=== PATIENT | female | born 1945 | race Hispanic/Latino ===

== ENCOUNTER 2018-09-17 07:08 | Day surgery (SDC) | payer OTHER ==
--- NOTE | 2018-09-14 10:18 | RAD REPORT ---
EXAM DESCRIPTION: RAD - Chest Pa And Lat (2 Views) - 09/14/2018 9:57 am CLINICAL HISTORY: preop Chest pain. COMPARISON: No comparisons FINDINGS: The lungs are mildly emphysematous but clear. The heart is upper limit normal in size. No displaced fractures. IMPRESSION: Mild COPD.
[2018-09-14 10:35] LABS: Absolute Lymphocytes (CBC) 1.5 K/uL (0.7-4.9); Basophils % 0.7 % (0-1.3); Eosinophils % 0.5 % (0-4.4); Hematocrit 40.1 % (36.0-45.0); Lymphocytes % 18.3 % (15.3-44.8); MPV 8.9 fL (7.6-11.3); Monocytes % 5.2 % (3.3-12.3); RBC Red Blood Cell Count 4.19 M/uL (3.86-4.86)
[2018-09-14 10:47] LABS: Potassium 3.8 mmol/L (3.5-5.1)
--- NOTE | 2018-09-14 15:37 | EKG ---
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
[2018-09-17] MEDS ORDERED: Ringers Lactate 1,000 ML IV ONE (08:10)
[2018-09-17] MEDS ORDERED: CEFAZOLIN/SWI 1gm 1 GM/10 ML SYR ONE (08:10)
[2018-09-17] MEDS ORDERED: PROPOFOL 200 MG/20 ML VIAL IV ONE (08:23)
[2018-09-17] MEDS ORDERED: FENTANYL CITR 100 MCG/2 ML ONE (08:24)
[2018-09-17] MEDS ORDERED: LIDOCAINE 1% MPF 5 ML VIAL ONE (08:24)
[2018-09-17] MEDS ORDERED: MIDAZOLAM HCL 2 MG/2 ML INJ ONE ×2 (08:46→08:54)
[2018-09-17] MEDS ORDERED: KETOROLAC 30 MG/ML INJ ONE (09:16)
[2018-09-17] MEDS ORDERED: ONDANSETRON 4 MG/2 ML VIAL ONE (09:23)
--- NOTE | 2018-09-17 09:33 | P.BOP ---
Preoperative diagnosis: infected post neck subcutaneous mass Postoperative diagnosis: same Primary procedure: Excisional biopsy infected post neck subcutaneous mass 3x3cm Viscose Department Worker: SHANTEL BHATIA (COVER MARKER) Estimated blood loss: <10cc Specimen: mass Findings: deep subq mass Anesthesia: General Transferred to: Recovery Room Condition: Good
--- NOTE | 2018-09-17 20:18 | OP ---
Date of Procedure: 09/17/2018 Surgeon: Jaydon Eckert MD [place] Attacher: GIBSON Vela Preoperative Diagnosis: Infected posterior neck subcutaneous mass. Postoperative Diagnosis: Infected posterior neck subcutaneous mass. Procedure: Excisional biopsy of infected posterior neck subcutaneous mass, 3 x 3 cm. Specimen: Mass. Findings: Deep subcutaneous mass. Anesthesia: General plus local. Indications: This is a case of a 72-year-old patient, who comes to us with a posterior neck subcutan eous mass with erythema and tenderness. Patient has been on antibiotics for several days, trying to pull down the infection in that region. She preferred not to be packing if possible. Patient came t deanna. The erythema is better. There is no fluctuance. She wants that excised. The benefits, alter natives, and risks of excision fully explained, which include but are not limited to infection, bleed ing, damage to adjacent structures, anesthesia complications, recurrence of abscess, CT, even . She also understands this might not relieve any symptoms. She might need more than one surgical int ervention. She understand we are going to clean the area. There was an infection there before, so w e are going to try to comply with request to put some stitches any try to close the area, but in the next few days, we noticed the infection is getting worse. Then, we might have to remove the stitches and just do wet-to-dry dressing until it close on its own. She understood and she preferred that pl an. The area of concern was marked by me and the patient in the holding room. Description Of Procedure: Patient was brought to the operating room, placed in supine position. Ane sthesia was done without complication. The patient was placed in lateral decubitus position with pro per protection. Local anesthesia was applied over the area after a time-out was called. A wedge inc ision was made in the skin deep into the subcutaneous tissue, all the way down to muscle. The muscle seems not to be penetrated by this. Cultures were obtained over the area. Area was profusely irrig ated. We proceeded to close this deep layers with 0 chromic, then more superficial with 0 chromic, a nd then the skin in mattress suture 3-0 nylon interrupted. Patient tolerated the procedure well. Lo delon anesthetic was applied before closure. Patient sent to recovery in stable condition. Disposition: Home. Activity: As tolerated. No heavy lifting. Followup: Follow up in my office in 1 week. Medication: Bactrim DS p.o. b.i.d., Tylenol No.3 q.4 hours p.r.n. pain, and Bactroban ointment. RICO/LUCIA Voice ID: [id number] Report ID: [id number]
== END 2018-09-17 10:26 | disposition home or self-care (01) ==
LOC: OR 07:08
PROVIDERS: ATTEND Surgery
PROC: 0JB40ZX Excision of Right Neck Subcutaneous Tissue and Fascia, Open Approach, Diagnostic (ICD-10-PCS; 2018-09-17)
PROC: 0JB50ZX Excision of Left Neck Subcutaneous Tissue and Fascia, Open Approach, Diagnostic (ICD-10-PCS; principal; 2018-09-17 08:30)
DX: L72.0 Epidermal cyst (principal); L03.221 Cellulitis of neck
CPT/HCPCS: 11426; 12042; 93005; 87070; 85025; 80048; 36415; 87205; 88304; 87075; 71046; J2704; J2250 ×2; J3010; J0690; J2405; 88305

== ENCOUNTER 2019-10-24 22:07 | Emergency (ER) | payer OTHER ==
--- OUTSIDE RECORDS SUMMARY | 2019-10-24 22:10 | XMS REPORT | Continuity of Care Document ---
:1945 Author Organization [facility] t Address [address] [place] [address] Care Team Providers Name Role Phone Danilo DAMIAN Attending Clinician Radiology Attending Clinician Unavailable Mian INSTALLATION AND SERVICE TECHNICIAN Attending Clinician Rocky INSTALLATION AND SERVICE TECHNICIAN Attending Clinician Problems This patient has no known problems. Allergies, Adverse Reactions, Alerts This patient has no known allergies or adverse reactions. Medications This patient has no known medications. Procedures This patient has no known procedures. Encounters Start End Encounter Admission Attending Care Care Encounter Source Date/Time Date/Time Type Type Clinicians Facility Department ID 2019-10-20 2019-10-20 Emergency Danilo [facility] [id number] 08:51:00 12:27:00 Rajinder Delgadillo [id number] [place] [id number] [place] [id number] 2019-10-18 2019-10-18 [facility] Radiology [facility] [id number] 07:34:44 23:59:00 Encounter Elie [id number] [place] [id number] [place] [id number] 2019-09-28 2019-09-28 Emergency Mian [facility] [id number] 16:26:00 19:31:00 Veronica Delgadillo [id number] [place] [id number] [place] [id number] 2019-01-17 2019-05-03 Urgent [facility] [id number] 20:00:51 06:52:47 [facility] [id number] Surgical [id number] [place] [id number] [address] Results This patient has no known results.
--- OUTSIDE RECORDS SUMMARY | 2019-10-24 22:10 | XMS REPORT | Summary of Care ---
:1945 Author Organization [facility] Address [address] [place] [address] Care Team Providers Name Role Phone MD Daniel Primary Care Provider Reason for Referral Other (PIO) Status Reason Specialty Diagnoses / Referred By Contact Refe rred To Procedures Contact New Request Diagnoses Generalized abdominal pain Cystitis Dizziness Ana Maria Urena MD Humphrey, [place], Procedures Discharge Follow-up: Specialty Provider YANELI CHATTERJEE; 3-[address] [place] [address] [address] [place], [place] [address] [facility] Phone: Nahid [address] [place] [address] Fax: MRI/CAT Scan (STAT) Status Reason Specialty Diagnoses / Referred By Referred To Procedures Contact Contact New Request Diagnostic Diagnoses Generalized abdominal pain Ana Maria Urena, Radiology Procedures CT ABDOMEN PELVIS W CONTRAST [address] [facility] [address] [place] [id number] Reason for Visit Reason Comments Abdominal Pain Nausea DIZZY Auth/Cert Status Reason Specialty Diagnoses / Referred By Referred To Procedures Contact Contact Emergency Medicine Ad[facility] Em ergency Dept [address] [place] [id number] Fax: Encounter Details Date Type Department Care Team Description 10/20/2019 Emergency ADC-Emergency Ana Maria Urena MD Generalized abdominal pain (Primary Dx); Department [address] [facility] Cystitis; [address] [place] [address] [place] [address] [place] [address] [phone] Allergies Active Allergy Reactions Severity Noted Date Comments Sulfamethoxazole Unknown - See comments 09/28/2019 " Makes me feel horrible" documented as of this encounter (statuses as of 10/20/2019) Medications Medication Sig Dispensed Refills Start Date End Date Status amoxicillin 500 mg Take 1 capsule by 15 capsule 0 10/20/2019 Active capsuleIndications: mouth 3 (three) Generalized abdominal times daily. pain, Cystitis, Dizziness documented as of this encounter (statuses as of 10/20/2019) Active Problems No known active problemsdocumented as of this encounter (statuses as of 10/20/2019) Social History Tobacco Use Types Packs/Day Years Used Date Never Smoker Smokeless Tobacco: Never Used Sex Assigned at Date Recorded Not on file COVID-19 Exposure Response Date Recorded In the last month, have you been in contact with No / Unsure 10/20/2019 8:52 AM CDT someone who was confirmed or suspected to have Coronavirus / COVID-19? documented as of this encounter Last Filed Vital Signs Vital Sign Reading Time Taken Comments Blood Pressure 165/88 10/20/2019 12:00 PM CDT Pulse 77 10/20/2019 12:00 PM CDT Temperature 37.4 C (99.4 F) 10/20/2019 9:02 AM CDT Respiratory Rate 15 10/20/2019 12:00 PM CDT Oxygen Saturation 98% 10/20/2019 12:00 PM CDT Inhaled Oxygen Concentration - - Weight 62.1 kg (137 lb) 10/20/2019 9:02 AM CDT Height - - Body Mass Index 26.76 09/28/2019 4:24 PM CDT documented in this encounter Discharge Instructions InstructionsAna Maria Urena MD - 10/20/2019 RETURN FOR ANY QUESTIONS OR CONCERNS Today you were seen by Ana Maria Urena Jr., MD You were seen today for Chief Complaint Patient presents with Abdominal Pain Nausea DIZZY Your ER diagnosis was ICD-10-CM ICD-9-CM 1. Generalized abdominal pain R10.84 789.07 2. Cystitis N30.90 595.9 3. Dizziness R42 780.4 NO LIFE-THREATENING FINDINGS ON TODAY'S EXAM. YOUR PRESCRIPTIONS : Check out [employer] for medication discounts Medication List You have not been prescribed any medications. ER precautions and follow up : 1. Return to ER if your symptoms should worsen or fail to improve within 72 hours. 2. The care provided in the emergency room was for acute problems only. 3. You should follow up with your primary care provider within 72 hours. 4. Fill and take all your medications as prescribed. 5. Make sure you are staying adequately hydrated. Busque attencion immediatamente si usted tiene los sitomas sigue, vuelve peor o si hay sitomas nuevas o para cualquiera preoccupacion incluyendo dolor del pecho, falta aire, se siente debile, mas fievre, mas dolor, nausea, vomitando, sangrando que no es normal, confusion, baja or pierdas conciencia. MAY FOLLOW-UP WITH A PROVIDER OF YOUR CHOICE, SUCH : 1. A PHYSICIAN OF YOUR CHOICE 2. [facility], . LOCATIONS IN [facility] 3. [facility], [address] [place] [address]; [phone] OR, IF YOU WISH TO FOLLOW-UP WITHIN THE [facility], MAY TRY THESE OPTIONS (CLINIC APPOINTMENTS AVAILABLE ON [id number] BASIS): 1. SCHEDULE AN APPOINTMENT ONLINE AT WWW[facility] 2. OR CALL THE [facility] ACC[facility]ENTER AT OR 3. OR CALL YOUR [facility] PHYSICIAN'S OFFICE DIRECTLY IF YOU ARE ALREADY AN ESTABLISHED [facility] PATIENT. [facility] RETURN TO WORK / SCHOOL EXCUSE Toma Paul WAS SEEN IN THE ER AND DISCHARGED 10/20/2019 TODAY, 12:02 PM & May return to Work / School / Incarceration on X with activity as tolerated indicated below. ___The following limitations apply until pt is seen by Physician and cleared to return to normal activity. _X_ Off for two days and return to activity as tolerated at work or school ___ No Sports ___ No work ___ Do not return until fever free for 24 hours. ___ No school ANA MARIA URENA Jr., MD [facility] [address] [place] [address] [place] [address] ### The patient may have been given Narcotic pain medications during their stay in the ED that may show up on a Drug Screen. The hospital discharge paper work will identify these medications. AttachmentsThe following attachments cannot be sent through Care Everywhere. Bladder Infection, Female (Adult) ([place])Dizziness, Uncertain Cause ([place]) Abdominal Pain, Adult ([place])documented in this encounter ED Notes Negrita Cordero RN - 10/20/2019 8:53 AM CDTPatient report that she woke up this morning with abdominal pain, nausea, vomiting, a headache and seeing "floaters" Denies any COVID exposure DTAna Maria Urena MD - 10/20/2019 8:38 AM CDT EMERGENCY DEPARTMENT ENCOUNTER [facility] Patient Name: Toma Paul Date of : 1945 73 year old Exam Room:[facility] Primary Care Physician: Hans Sanchez Pre- Hospital Patient Escorted by: Self [9] Mode of Arrival: Personal means [1] EMS Treatment Prior to ED Arrival: [employer] treatment: None Chief Complaint Chief Complaint Patient presents with Abdominal Pain Nausea DIZZY HPI History provided by: Patient Abdominal Pain Pain location: Generalized Pain quality: aching and cramping Pain radiates to: Does not radiate Pain severity: Moderate Onset quality: Gradual Duration: 3 weeks Timing: Intermittent Progression: Waxing and waning Chronicity: New Relieved by: Nothing Worsened by: Nothing Associated symptoms: no chest pain, no chills, no cough, no dysuria, no fatigue, no fever, no hematemesis, no hematochezia, no nausea, no shortness of breath, no vaginal bleeding, no vaginal discharge and no vomiting Past Medical History / Immunizations No past medical history on file. Tetanus received in last 5 years: Yes Childhood immunizations: Up-to-date Past Surgical History No past surgical history on file. Allergies Allergies Allergen Reactions Sulfamethoxazole Unknown - See comments "Makes me feel horrible" Social History Tobacco Use Never smoked or used smokeless tobacco. Review of Systems Review of Systems Constitutional: Negative. Negative for chills, fatigue, fever and unexpected weight change. HENT: Negative. Eyes: Negative. Negative for discharge and itching. Respiratory: Negative. Negative for cough, chest tightness, shortness of breath and wheezing. Cardiovascular: Negative. Negative for chest pain and palpitations. Gastrointestinal: Positive for abdominal pain. Negative for abdominal distention, hematemesis, hematochezia, nausea and vomiting. Genitourinary: Negative. Negative for dysuria, urgency, frequency, flank pain, vaginal bleeding andvaginal discharge. Musculoskeletal: Negative. Skin: Negative. Negative for color change, pallor and wound. Neurological: Positive for dizziness. Negative for syncope, light-headedness and headaches. Psychiatric/Behavioral: Negative. Negative for agitation and behavioral problems. All other systems reviewed and are negative. Endocrine: Endocrine negative Physical Exam BP (!) 153/88 | Pulse 79 | Temp 37.4 C (99.4 F) (Oral) | Resp 22 | Wt 62.1 kg (137 lb) | SpO2 98% | BMI 26.76 kg/m Physical Exam Vitals signs reviewed. Constitutional: Appearance: She is well-developed. HENT: Head: Normocephalic and atraumatic. Nose: Nose normal. Eyes: Conjunctiva/sclera: Conjunctivae normal. Neck: Musculoskeletal: Normal range of motion and neck supple. Trachea: No tracheal deviation. Cardiovascular: Rate and Rhythm: Normal rate and regular rhythm. Heart sounds: Normal heart sounds. No murmur. No friction rub. Pulmonary: Effort: Pulmonary effort is normal. No respiratory distress. Breath sounds: Normal breath sounds. No stridor. No wheezing or rales. Abdominal: General: Bowel sounds are normal. There is no distension. Palpations: Abdomen is soft. Tenderness: There is no abdominal tenderness. There is no guarding or rebound. Musculoskeletal: Normal range of motion. Skin: General: Skin is warm and dry. Neurological: Mental Status: She is alert and oriented to person, place, and time. Cranial Nerves: No cranial nerve deficit. Sensory: No sensory deficit. Psychiatric: Behavior: Behavior normal. Thought Content: Thought content normal. Judgment: Judgment normal. Labs Recent Results (from the past 24 hour(s)) Urinalysis Collection Time: 08/23/20 9:36 AM Result Value Ref Range APPEARANCE Clear Clear COLOR Straw (A) Yellow PH 7.0 4.8 - 8.0 SP GRAVITY 1.006 1.003 - 1.030 GLU U QUAL Normal Normal BLOOD 1+ (A) Negative KETONES Negative Negative PROTEIN Negative Negative UROBILIN Normal Normal BILIRUBIN Negative Negative NITRITE Negative Negative LEUK NISHA 25/uL (A) Negative RBC/HPF 3 0 - 3 HPF WBC/HPF 5 0 - 5 HPF BACTERIA Few (A) Negative MUCOUS Slight (A) Negative LPF SQ EPITH 2 HPF CBC with Differential Collection Time: 10/20/19 9:36 AM Result Value Ref Range WBC 6.37 4.30 - 11.10 10*3/L RBC 4.14 3.93 - 5.25 10*6/L HGB 13.5 11.6 - 15.0 g/dL HCT 38.7 35.7 - 45.2 % MCV 93.5 80.6 - 95.5 fL MCH 32.6 25.9 - 32.8 pg MCHC 34.9 31.6 - 35.1 g/dL RDW-SD 44.5 39.0 - 49.9 fL RDW-CV 13.0 12.0 - 15.5 % PLT 253 166 - 358 10*3/L MPV 9.9 9.5 - 12.9 fL NRBC/100 WBC 0.0 0.0 - 10.0 /100 WBCs NRBC x10^3 <0.01 10*3/L GRAN MAT (NEUT) % 68.9 % IMM GRAN % 0.30 % LYMPH % 22.1 % MONO % 6.9 % EOS % 1.3 % BASO % 0.5 % GRAN MAT x10^3(ANC) 4.39 1.88 - 7.09 10*3/uL IMM GRAN x10^3 <0.03 0.00 - 0.06 10*3/uL LYMPH x10^3 1.41 1.32 - 3.29 10*3/uL MONO x10^3 0.44 0.33 - 0.92 10*3/uL EOS x10^3 0.08 0.03 - 0.39 10*3/uL BASO x10^3 0.03 0.01 - 0.07 10*3/uL Basic Metabolic Panel (NA, K, CL, CO2, GLUCOSE, BUN, CREATININE, CA) Collection Time: 10/20/19 9:36 AM Result Value Ref Range NA 142 135 - 145 mmol/L K 3.4 (L) 3.5 - 5.0 mmol/L CL 106 98 - 108 mmol/L CO2 TOTAL 29 23 - 31 mmol/L AGAP 7 2 - 16 BUN 8 7 - 23 mg/dL GLUCOSE 103 70 - 110 mg/dL CREATININE 0.64 0.50 - 1.04 mg/dL CALCIUM 9.3 8.6 - 10.6 mg/dL eGFR Calculation (Non-) 91.0 mL/min/1.73m2 eGFR Calculation () 110.2 mL/min/1.73m2 Hepatic Function Panel (ALB, T.PRO, BILI T, BU/BC, ALT, AST, ALK PHOS) Collection Time: 10/20/19 9:36 AM Result Value Ref Range TOTAL BILI 0.6 0.1 - 1.1 mg/dL BILI UNCON 0.8 0.1 - 1.1 mg/dL BILI CONJ 0.0 0.0 - 0.3 mg/dL T PROTEIN 7.7 6.3 - 8.2 g/dL ALBUMIN 4.4 3.5 - 5.0 g/dL ALK PHOS 80 34 - 122 U/L ALTv 14 5 - 35 U/L AST(SGOT) 25 13 - 40 U/L Lipase Serum Collection Time: 10/20/19 9:36 AM Result Value Ref Range LIPASE 72 0 - 220 U/L Troponin I Collection Time: 10/20/19 9:36 AM Result Value Ref Range TROPONIN I <0.012 <=0.034 ng/mL aPTT Collection Time: 10/20/19 9:36 AM Result Value Ref Range APTT Patient 28 23 - 38 Seconds Prothrombin Time (PT) / INR Collection Time: 10/20/19 9:36 AM Result Value Ref Range PROTIME PATIENT 12.8 12.0 - 14.7 Seconds INR 1.0 N-TERMINAL PRO-BNP Collection Time: 10/20/19 9:36 AM Result Value Ref Range NT-proBNP 127 (H) <=125 pg/mL Lactic Acid Whole Blood Collection Time: 10/20/19 9:36 AM Result Value Ref Range LACTIC ACID 1.44 mmol/L Imaging Hospital Encounter on 10/20/19 CT ABDOMEN PELVIS W CONTRAST Narrative EXAM: CT ABDOMEN AND PELVIS WITH CONTRAST HISTORY: pain, nausea, vomiting, a headache and seeing "floaters COMPARISON: Abdominal ultrasound 10/18/2019. TECHNIQUE AND FINDINGS: Contiguous axial imaging from the level of the lung bases through the proximal thighs was performed after the administration of intravenous Omnipaque contrast. Coronal and sagittal reconstructions were obtained. Auto mA and/or iterative reconstruction were used to reduce radiation dose. FINDINGS: LOWER THORAX: Bibasilar atelectasis with focal area of nodularity in the lingula measuring 8 mm. A focal pleural thickening at the right diaphragm measures 0.9 cm (4:48). A 0.5 cm right middle lobe noncalcified nodule (2:6). LIVER: Few small hypoattenuating foci are noted within the right hepatic and left hepatic lobe, too small to characterize, may represent hepatic cysts. GALLBLADDER AND BILIARY TREE: No biliary ductal dilation. No gallbladder wall thickening. No radiopaque cholelithiasis. SPLEEN: No splenomegaly. PANCREAS: No ductal dilation or masses. Fatty infiltration of the pancreatic head. ADRENAL GLANDS: No adrenal nodules. KIDNEYS: No hydronephrosis, stones or solid lesions. PERITONEUM AND RETROPERITONEUM: No free air or fluid. LYMPH NODES: No lymphadenopathy. GI TRACT: No dilation or abnormal wall thickening. The appendix is not visualized. Mild pancolonic diverticulosis with no CT signs of diverticulitis. Small sliding-type hiatal hernia. PELVIS/BLADDER: Mild thickening of the urinary bladder slightly out of proportion to degree of distention. Uterus appears to be absent. Ovaries are slightly more prominent than expected for patient this age. For example the left ovary measures 3.0 x 1.7 cm. VESSELS: Mild aortic atherosclerotic calcifications. Patent main portal and splenic veins. BONES AND SOFT TISSUES: No suspicious lytic or sclerotic bony lesions. Mild multilevel degenerative changes scattered throughout the visualized thoracolumbar spine. Impression Diffuse wall thickening of urinary bladder with surrounding fat stranding suggestive of underlying inflammation. Correlation with urinalysis for possible cystitis or UTI. Mildly prominent ovaries, slightly larger than expected for patient this age. Consider short-term follow-up with pelvic ultrasound on nonemergent/outpatient basis. A 0.9 cm right pleural-based thickening, and 0.5 cm right lower lung noncalcified nodule. Comparison to prior imaging. If no comparisons available then consider follow-up in 3-6 months to document stability. Preliminary Report Dictated by Resident: Dipika Hernandez I, Patrick Ring MD., have reviewed this study and agree with the above report. Orders and Treatments Orders Placed This Encounter Procedures CT ABDOMEN PELVIS W CONTRAST Urinalysis CBC with Differential Basic Metabolic Panel (NA, K, CL, CO2, GLUCOSE, BUN, CREATININE, CA) Hepatic Function Panel (ALB, T.PRO, BILI T, BU/BC, ALT, AST, ALK PHOS) Lipase Serum Troponin I aPTT Prothrombin Time (PT) / INR N-TERMINAL PRO-BNP Lactic Acid Whole Blood Orders Placed This Encounter Medications iohexol (OMNIPAQUE 350 BULK-100 mL) injection 100 mL amoxicillin 500 mg capsule Procedures EKG Time 0925 Rate 79 [place] normal Intervals normal No acute ischemia Normal EKG Notes & MDM Patient was evaluated for an emergency medical condition related to Abdominal Pain, Nausea, and DIZZY . Differential diagnoses considered by presenting complaints but not limited to: SBO Colitis Biliary disease Assessment: The patient does have a lung nodule however she has a negative CT scan for any acute interventional pathology. She notes that she usually has asymptomatic UTIs. She will be treated for cystitis. She isto follow up with surgery as an outpatient. The patient can return for any questions or concerns. History, physical exam findings, results of visit, differential diagnosis, medication regimens and plan of future care have been considered. Additional MDM may be found in the ED course. Differential diagnosis considered and final disposition made based on information gathered during evaluation and may not be completely ruled out or specifically listed. Vital signs were rechecked before final disposition. Diagnosis ICD-10-CM ICD-9-CM 1. Generalized abdominal pain R10.84 789.07 2. Cystitis N30.90 595.9 3. Dizziness R42 780.4 Disposition & Follow Up ED Disposition ED Disposition Condition Comment Disch - Home Stable Patient's Medications START taking these medications AMOXICILLIN 500 MG CAPSULE Take 1 capsule by mouth 3 (three) times daily. CONTINUE taking these medications which have NOT CHANGED No medications on file START taking Modified Medications as Prescribed No medications on file STOP taking these medications No medications on file Contact information for follow-up Hans Sanchez MD Specialty: IM-INTERNAL MEDICINE Relationship: PCP - General [address] [place] [address] Ana Maria Urena Jr., MD Clinical Title [facility] Emergency Department documented in this encounter Miscellaneous Notes ED Nurse Note - Jelena Garcia, RN - 10/20/2019 12:23 PM CDTPt given printed and verbal discharge instructions regarding bladder infection, dizziness, abdominal pain, encouraged hydration, 1 Prescriptions provided Discussed ibuprofen and to take with food to avoid GI distress. Discussed antibiotic therapy and to take until all completed unless adverse reaction occurs - if occurs, discontinue medication and follow up with pcp/seek medical attention Pt verbalized understanding of instructions, pt awake alert oriented, resp reg unlabored, skin w/d, color appropriate for race, moves all ext well,pt encouraged to follow up with pcp and or General Surgery Advised to seek medical attention for new/prolonged/worsening of symptoms, No adverse reaction to meds given in ER noted upon discharge PIV d'cd, dressing to site, catheter in tact. Awake, alert oriented, resp reg unlabored, skin w/d, pt leaving amb with steady gait, in no apparent distress, documented in this encounter Plan of Treatment Health Maintenance Due Date Last Done Comments HEPATITIS C (HCV) SCREEN 1945 Depression Screening 1957 DTaP,Tdap,and Td Vaccines (1 - Tdap) 1964 Breast Cancer Screening (MAMMOGRAM) 1985 COLON CANCER SCREENING ANNUAL 10/28/1995 FIT/FOBT COLON CANCER SCREENING FIT DNA EVERY 10/28/1995 3 YEARS COLON CANCER SCREENING SIGMOIDOSCOPY 10/28/1995 EVERY 5 YEARS COLONOSCOPY 10/28/1995 Colorectal Cancer Screening 10/28/1995 Zoster Recombinant Vaccine (SHINGRIX) 10/28/1995 (1 of 2) Medicare Wellness Visit 2010 PNEUMOCOCCAL VACCINES 65+ (1 of 1 - 2010 PPSV23) INFLUENZA VACCINE (#1) 2019 Osteoporosis Screening 01/18/2028 01/17/2018, 09/22/2014, 09/22/2014 documented as of this encounter Procedures Procedure Name Priority Date/Time Associated Diagnosis Comme nts CT ABDOMEN PELVIS W STAT 10/20/2019 10:24 Generalized Resu lts for this CONTRAST AM CDT abdominal pain procedure are in the results section. LACTIC ACID WHOLE STAT 10/20/2019 9:36 Generalized Result s for this BLOOD AM CDT abdominal pain procedure are in the results section. N-TERMINAL PRO-BNP STAT 10/20/2019 9:36 Generalized Resul ts for this AM CDT abdominal pain procedure are in the results section. URINALYSIS STAT 10/20/2019 9:36 Generalized Results for this AM CDT abdominal pain procedure are in the results section. ACTIVATED PARTIAL STAT 10/20/2019 9:36 Generalized Result s for this THRMPLAS ELÍAS AM CDT abdominal pain procedure are in the results section. PROTHROMBIN TIME / STAT 10/20/2019 9:36 Generalized Resul ts for this INR AM CDT abdominal pain procedure are in the results section. CBC WITH DIFF STAT 10/20/2019 9:36 Generalized Results fo r this AM CDT abdominal pain procedure are in the results section. BASIC METABOLIC STAT 10/20/2019 9:36 Generalized Results for this PANEL (NA, K, CL, AM CDT abdominal pain procedur e are in CO2, GLUCOSE, BUN, the resul ts CREATININE, CA) section. HEPATIC FUNCTION STAT 10/20/2019 9:36 Generalized Results for this PANEL (18899) AM CDT abdominal pain procedure ar e in (ALB,T.PRO,BILI the results T,BU/BC,ALT,AST,ALK section. PHOS) TROPONIN I STAT 10/20/2019 9:36 Generalized Results for this AM CDT abdominal pain procedure are in the results section. LIPASE STAT 10/20/2019 9:36 Generalized Results for this AM CDT abdominal pain procedure are in the results section. EKG-12 LEAD STAT 10/20/2019 9:11 AM CDT CONSENT/REFUSAL FOR Routine 10/20/2019 8:38 DIAGNOSIS AND AM CDT TREATMENT documented in this encounter Results CT ABDOMEN PELVIS W CONTRAST (10/20/2019 10:24 AM CDT) Specimen Impressions Performed At PACS/VR/DOSE Diffuse wall thickening of urinary bladder with surrou nding fat stranding suggestive of underlying inflammation. C orrelation with urinalysis for possible cystitis or UTI. Mildly prominent ovaries, slightly large r than expected for patient this age. Consider short-term follow-up with pelvic ultrasound on nonemergent/outpatient basis. A 0.9 cm right pleural-based thickening, and 0.5 cm right lower lung noncalcified nodule. Comparison to prior imaging. If no comparisons available then consider follow-up in 3-6 months to document stability. Preliminary Report Dictated by Resident: Patrick Quarles MD., have review ed this study and agree with the above report. Narrative Performed At EXAM: CT ABDOMEN AND PELVIS WITH CONTRAS T PACS/VR/DOSE HISTORY: pain, nausea, vomiting, a heada sofia and seeing "floaters COMPARISON: Abdominal ultrasound 10/18/19. TECHNIQUE AND FINDINGS: Contiguous axial imaging from the level of the lung bases through the proximal thighs was performed after the administration of intravenous Omnipaque contrast. Coronal and sagittal r econstructions were obtained. Auto mA and/or iterative recon struction were used to reduce radiation dose. FINDINGS: LOWER THORAX: Bibasilar atelectasis with focal area of nodularity in the lingula measuring 8 mm. A focal pleural thickening at the right diaphragm annita ures 0.9 cm (4:48). A 0.5 cm right middle lobe noncalcified no dule (2:6). LIVER: Few small hypoattenuating foci ar e noted within the right hepatic and left hepatic lobe, too small to cheri acterize, may represent hepatic cysts. GALLBLADDER AND BILIARY TREE: No biliary ductal dilati on. No gallbladder wall thickening. No radiopaque cholelith iasis. SPLEEN: No splenomegaly. PANCREAS: No ductal dilation or masses. Fatty infiltration of the pancreatic head. ADRENAL GLANDS: No adrenal nodules. KIDNEYS: No hydronephrosis, stones or so lid lesions. PERITONEUM AND RETROPERITONEUM: No free air or fluid. LYMPH NODES: No lymphadenopathy. GI TRACT: No dilation or abnormal wall t hickening. The appendix is not visualized. Mild pancolonic diverticulos is with no CT signs of diverticulitis. Small sliding-type hiatal hernia. PELVIS/BLADDER: Mild thickening of the u rinary bladder slightly out of proportion to degree of distention. Uter us appears to be absent. Ovaries are slightly more prominent than expected for patient this age. For example the left ovary measures 3.0 x 1.7 cm. VESSELS: Mild aortic atherosclerotic calcifications. P atent main portal and splenic veins. BONES AND SOFT TISSUES: No suspicious lytic or sclerot ic bony lesions. Mild multilevel degenerative changes scattere d throughout the visualized thoracolumbar spine. Procedure Note [facility], Radiant Results Inft User - 2019 12:01 PM CDT EXAM: CT ABDOMEN AND PELVIS WITH CONTRAST HISTORY: pain, nausea, vomiting, a heada sofia and seeing "floaters COMPARISON: Abdominal ultrasound 10/18/19. TECHNIQUE AND FINDINGS: Contiguous axial imaging from the level of the lung bases through the proximal thighs was pe rformed after the administration of intravenous Omnipaque contrast. Coronal and sagittal reconstructions were obtained. Auto mA and/or iterative recon struction were used to reduce radiation dose. FINDINGS: LOWER THORAX: Bibasilar atelectasis with focal area of nodularity in the lingula measuring 8 mm. A focal pleural thickening at the right diaphragm measures 0.9 cm (4:48). A 0.5 cm right middle lobe noncalcified no dule (2:6). LIVER: Few small hypoattenuating foci ar e noted within the right hepatic and left hepatic lobe, too small to cheri acterize, may represent hepatic cysts. GALLBLADDER AND BILIARY TREE: No biliary ductal dilation. No gallbladder wall thickening. No radiopaque cholelith iasis. SPLEEN: No splenomegaly. PANCREAS: No ductal dilation or masses. Fatty infiltration of the pancreatic head. ADRENAL GLANDS: No adrenal nodules. KIDNEYS: No hydronephrosis, stones or so lid lesions. PERITONEUM AND RETROPERITONEUM: No free air or fluid. LYMPH NODES: No lymphadenopathy. GI TRACT: No dilation or abnormal wall t hickening. The appendix is not visualized. Mild pancolonic diverticulos is with no CT signs of diverticulitis. Small sliding-type hiatal hernia. PELVIS/BLADDER: Mild thickening of the u rinary bladder slightly out of proportion to degree of distention. Uter us appears to be absent. Ovaries are slightly more prominent than expecte d for patient this age. For example the left ovary measures 3.0 x 1.7 cm. VESSELS: Mild aortic atherosclerotic delon cifications. Patent main portal and splenic veins. BONES AND SOFT TISSUES: No suspicious ly tic or sclerotic bony lesions. Mild multilevel degenerative changes scattere d throughout the visualized thoracolumbar spine. IMPRESSION Diffuse wall thickening of urinary bladd er with surrounding fat stranding suggestive of underlying inflammation. C orrelation with urinalysis for possible cystitis or UTI. Mildly prominent ovaries, slightly large r than expected for patient this age. Consider short-term follow-up with pelvic ultrasound on nonemergent/outpatient basis. A 0.9 cm right pleural-based thickening, and 0.5 cm right lower lung noncalcified nodule. Comparison to prior imaging. If no comparisons available then consider follow-up in 3-6 months to document stability. Preliminary Report Dictated by Resident: Dipika Hernandez I, Patrick Ring MD., have reviewe d this study and agree with the above report. Performing Organization Address City/[facility]/Zipcode Phone Number PACS/VR/DOSE Lactic Acid Whole Blood (10/20/2019 9:36 AM CDT) Pathologist Sig nature LACTIC ACID 1.44 mmol/L [facility] Specimen Blood - VENOUS Performing Organization Address [facility] Phone Number [facility] CLIA: [id number] [place] [address] N-TERMINAL PRO-BNP (10/20/2019 9:36 AM CDT) Pathologist Sig nature NT-proBNP 127 (H) <=125 pg/mL [facility] Specimen Blood - VENOUS Narrative Performed At [facility] has been reported to cause a negative [facility] bias, interpret results relative to patient's use of biotin. Performing Organization Address [facility] Phone Number [facility] CLIA: [id number] [place] [id number] LABORATORY [address] Prothrombin Time (PT) / INR (10/20/2019 9:36 AM CDT) PROTIME PATIENT 12.8 12.0 - 14.7 [facility] LABORATORY INR 1.0Comment: Normal [facility] INR <1.1; [facility]far[facility] HOSPITAL Therapeutic range LABORATORY 2.0 to 3.0 or 2.5 to 3.5, depending upon the indications. Specimen Blood - VENOUS Performing Organization Address [facility] Phone Number [facility] CLIA: [id number] [place], [place] [address] LABORATORY [address] aPTT (10/20/2019 9:36 AM CDT) Pathologist Sig nature APTT Patient 28 23 - 38 Seconds [facility] Specimen Blood - VENOUS Narrative Performed At The [facility] patient population mean normal value [facility] for aPTT is 30 seconds. Performing Organization Address [facility] Phone Number [facility] CLIA: [id number] [place] [address] Troponin I (10/20/2019 9:36 AM CDT) Pathologist Sig [facility] TROPONIN I <0.012 <=0.034 ng/mL [facility] Specimen Blood - VENOUS Narrative Performed At Equal or Less than 0.034 ng/ml---Normal [facility] Note: Cardiac troponin begins to rise 3-4 hours after the onset of ischemia. Repeat in 4-6 hours if the sample was drawn within 3-4 hours of the onset of the symptom and found normal. Between 0.035 and 0.120 ng/mL--- Borderline. Questionable myocardial injury or necros is Note: Serial measurement may be necessary to confirm or exclude the diagnosis of myocardial injury or necrosis; Clinical correlation (symptoms, EKGs, imaging studies, and others) required; Repeat in 4-6 hours if clinically indicated. Equal or Higher than 0.121 ng/mL---Abnormal. Myocardial Injury or Necrosis Likely Biotin has been reported to cause a negative bias, interpret results relative to patient's use of biotin. Performing Organization Address [facility] Phone Number [facility] CLIA: [id number] [place] [address] Lipase Serum (10/20/2019 9:36 AM CDT) Pathologist Sig [facility] LIPASE 72 0 - 220 U/L [facility] Specimen Blood - VENOUS Performing Organization Address [facility] Phone Number [facility] CLIA: [id number] [place] [address] Hepatic Function Panel (ALB, T.PRO, BILI T, BU/BC, ALT, AST, ALK PHOS) (10/20/2019 9:36 AM CDT) Pathologist Sig nature TOTAL BILI 0.6 0.1 - 1.1 mg/dL [facility] BILI UNCON 0.8 0.1 - 1.1 mg/dL [facility] BILI CONJ 0.0 0.0 - 0.3 mg/dL [facility] T PROTEIN 7.7 6.3 - 8.2 g/dL [facility] ALBUMIN 4.4 3.5 - 5.0 g/dL [facility] ALK PHOS 80 34 - 122 U/L [facility] ALTv 14 5 - 35 U/L [facility] AST(SGOT) 25 13 - 40 U/L [facility] Specimen Blood - VENOUS Performing Organization Address City/State/Zipcode Phone Number [facility] CLIA: [id number] [place] [address] Basic Metabolic Panel (NA, K, CL, CO2, GLUCOSE, BUN, CREATININE, CA) (10/20/2019 9:36 AM CDT) Pathologist [facility] nature NA 142 135 - 145 [facility] mmol/L [facility] K 3.4 (L) 3.5 - 5.0 [facility] mmol/L [facility] CL 106 98 - 108 mmol/L [facility] CO2 TOTAL 29 23 - 31 mmol/L [facility] AGAP 7 2 - 16 [facility] BUN 8 7 - 23 mg/dL [facility] GLUCOSE 103 70 - 110 mg/dL [facility] CREATININE 0.64 0.50 - 1.04 [facility] mg/dL [facility] CALCIUM 9.3 8.6 - 10.6 [facility] mg/dL [facility] eGFR Calculation 91.0 mL/min/1.73m2 [facility] (Non-[facility] LABORATORY Mexican) eGFR Calculation 110.2 mL/min/1.73m2 [facility] () [facility] Specimen Blood - VENOUS Narrative Performed At Association of Glomerular Filtration Rate (GFR) [facility] and Staging of Kidney Disease* + + +- + | GFR (mL/min/1.73 m2) | With Kidney Damage | Without Kidney Damage + + +- + | >90 | Stage one | Normal + + +- + | 60-89 | Stage two | Decreased GFR + + +- + | 30-59 | Stage three | Stage three + + +- + | 15-29 | Stage four | Stage four + + +- + | <15 (or dialysis) | Stage five | Stage five + + +- + *Each stage assumes the associated GFR level has been in effect for at least three months. Stages 1 to 5, with or without kidney disease, indicate chronic kidney disease. Notes: Determination of stages one and two (with eGFR >59mL/min/1.73 m2) requires estimation of kidney damage for at least three months as defined by structural or functional abnormalities of the kidney, manifested by either: Pathological abnormalities or Markers of kidney damage (including abnormalities in the composition of the blood or urine or abnormalities in imaging tests). Performing Organization Address City/State/Zipcode Phone Number [facility] CLIA: [id number] [place] [address] CBC with Differential (10/20/2019 9:36 AM CDT) [facility] nature WBC 6.37 4.30 - 11.10 [facility] 10*3/L [facility] RBC 4.14 3.93 - 5.25 [facility] 10*6/L [facility] HGB 13.5 11.6 - 15.0 g/dL [facility] HCT 38.7 35.7 - 45.2 % [facility] MCV 93.5 80.6 - 95.5 fL [facility] MCH 32.6 25.9 - 32.8 pg [facility] MCHC 34.9 31.6 - 35.1 g/dL [facility] RDW-SD 44.5 39.0 - 49.9 fL [facility] RDW-CV 13.0 12.0 - 15.5 % [facility] PLT 253 166 - 358 [facility] 10*3/L [facility] MPV 9.9 9.5 - 12.9 fL [facility] NRBC/100 WBC 0.0 0.0 - 10.0 /100 [facility] WBCs [facility] NRBC x10^3 <0.01 10*3/L [facility] GRAN MAT (NEUT) % 68.9 % [facility] IMM GRAN % 0.30 % [facility] LYMPH % 22.1 % [facility] MONO % 6.9 % [facility] EOS % 1.3 % [facility] BASO % 0.5 % [facility] GRAN MAT x10^3(ANC) 4.39 1.88 - 7.09 [facility] 10*3/uL HOSPITAL LABORATORY IMM GRAN x10^3 <0.03 0.00 - 0.06 [facility] 10*3/uL [facility]OS[facility]ITAL LAB[facility]ORY LYMPH x10^3 1.41 1.32 - 3.29 [facility] 10*3/uL [facility]OSPITAL LAB[facility]ORY MONO x10^3 0.44 0.33 - 0.92 [facility] 10*3/uL HOSPITAL LABORATORY EOS x10^3 0.08 0.03 - 0.39 [facility] 10*3/uL HOSPITAL LABORATORY BASO x10^3 0.03 0.01 - 0.07 [facility] 10*3/uL [facility] Specimen Blood - VENOUS Performing Organization Address City/State/Zipcode Phone Number [facility] CLIA: [id number] [place] [address] Urinalysis (10/20/2019 9:36 AM CDT) Pathologist Sig nature APPEARANCE Clear Clear [facility] COLOR Straw (A) Yellow [facility] PH 7.0 4.8 - 8.0 [facility] SP GRAVITY 1.006 1.003 - 1.030 [facility] GLU U QUAL Normal Normal [facility] BLOOD 1+ (A) Negative [facility] KETONES Negative Negative [facility] PROTEIN Negative Negative [facility] UROBILIN Normal Normal [facility] BILIRUBIN Negative Negative [facility] NITRITE Negative Negative [facility] LEUK NISHA 25/uL (A) Negative [facility] RBC/HPF 3 0 - 3 HPF [facility] WBC/HPF 5 0 - 5 HPF [facility] BACTERIA Few (A) Negative [facility] MUCOUS Slight (A) Negative LPF [facility] SQ EPITH 2 HPF [facility] Specimen Urine - URINE, CLEAN CATCH Performing Organization Address City/State/Zipcode Phone Number [facility] CLIA: [id number] [place] [address] documented in this encounter Visit Diagnoses Diagnosis Generalized abdominal pain - Primary Abdominal pain, generalized Cystitis Cystitis, unspecified Dizziness Dizziness and giddiness documented in this encounter Administered Medications Medication Order MAR Action Action Date Dose Rate Site iohexol (OMNIPAQUE 350 BULK-100 Given 10/20/2019 10:21 AM CDT 10 0 mL mL) injection 100 mL 100 mL, Intravenous, ONCE, 1 dose, 10/20/19 at 1030, Routine documented in this encounter Insurance Payer Benefit Plan / Subscriber ID Effective Dates Phone Addre ss Type Group MEDICARE MEDICARE PART [id number] 2010-Timmy [phone] [facility] Medicare A & B t 2 [id number] [place] [phone] FAHEEM COOLEY [id number] 2010-Selvin goodrich nt documented as of this encounter
--- OUTSIDE RECORDS SUMMARY | 2019-10-24 22:10 | XMS REPORT | Summary of Care ---
:1945 Author Organization [facility] Address [address] [place] [address] Care Team Providers Name Role Phone MD Daniel Primary Care Provider Reason for Referral Radiology Services (Routine) Status Reason Specialty Diagnoses / Referred By Referred To Procedures Contact Contact Closed Diagnostic Diagnoses Upper abdominal pain Other acute gastritis without hemorrhage Daniel, Radiology Procedures US ABDOMEN COMPLETE MD Hans [address] [place] [address] Reason for Visit Radiology Services (Routine) Status Reason Specialty Diagnoses / Referred By Referred To Procedures Contact Contact Closed Diagnostic Diagnoses Upper abdominal pain Other acute gastritis without hemorrhage Daniel, Radiology Procedures US ABDOMEN COMPLETE MD Hans [address] [place] [address] Encounter Details Date Type Department Care Team Description 10/18/2019 Hospital Encounter [facility] Radiolog y Arrived [facility] [address] [place] [address] [place] [address] Allergies Active Allergy Reactions Severity Noted Date Comments Sulfamethoxazole Unknown - See comments 09/28/2019 " Makes me feel horrible" documented as of this encounter (statuses as of 10/19/2019) Medications No known medicationsdocumented as of this encounter (statuses as of 10/19/2019) Active Problems No known active problemsdocumented as of this encounter (statuses as of 10/19/2019) Social History Tobacco Use Types Packs/Day Years Used Date Never Smoker Smokeless Tobacco: Never Used Sex Assigned at Date Recorded Not on file COVID-19 Exposure Response Date Recorded In the last month, have you been in contact with Yes 09/28/2019 4:18 PM CDT someone who was confirmed or suspected to have Coronavirus / COVID-19? documented as of this encounter Last Filed Vital Signs Not on filedocumented in this encounter Plan of Treatment Health [...] Name Priority Date/Time Associated Diagnosis Comme nts US ABDOMEN COMPLETE Routine 10/18/2019 8:30 AM Upper ab dominal pain Results for this CDT Other acute procedure are i n gastritis without the result s hemorrhage section. documented in this encounter Results US ABDOMEN COMPLETE (10/18/2019 8:30 AM CDT) Specimen Impressions Performed At PACS/VR/DOSE Unremarkable ultrasound of the abdomen Narrative Performed At This result has an attachment that is no t available. HISTORY: Other acute gastritis without hemorrhage Upper abdominal pain PACS/VR/DOSE Walk in patient with written orders. ABDOMINAL ULTRASOUND, COMPLETE COMPARISON: None. FINDINGS: LIVER: Normal in size and echo-texture. Measures 13.8 cm in its craniocaudal dimension A 5 mm anechoic structure in th e left lobe represents a simple cyst. Normal hepatopetal flow within the main portal vein. Portal vein is normal in size and measures 9 mm. GALLBLADDER: No cholelithiasis, pericholecystic fluid, or gallbladder distention. No sonographic Roa's sign. The common b ile duct measures 3 mm. PANCREAS: Incompletely visualized due to overlying bow el gas. SPLEEN: The spleen is normal in size, measuring 9.6 cm . KIDNEYS: The kidneys are normal in size, contour, and echotexture. The right kidney measures 9.6 cm, and the left kidney annita ures 10.7 cm. No hydronephrosis. No ascites. The visualized portions of the abdominal aorta (measur es 1.5 cm in diameter) has normal caliber. Procedure Note [facility], Radiant Results Inft User - 2019 9:00 AM CDT HISTORY: Other acute gastritis without hemorrhage Upper abdominal pain Walk in patient with written orders. ABDOMINAL ULTRASOUND, COMPLETE COMPARISON: None. FINDINGS: LIVER: Normal in size and echo-texture. Measures 13.8 cm in its craniocaudal dimension A 5 mm anechoic s tructure in the left lobe represents a simple cyst. Normal hepato petal flow within the main portal vein. Portal vein is normal in size and measures 9 mm. GALLBLADDER: No cholelithiasis, perichol ecystic fluid, or gallbladder distention. No sonographic Roa's sign . The common bile duct measures 3 mm. PANCREAS: Incompletely visualized due to overlying bowel gas. SPLEEN: The spleen is normal in size, me asuring 9.6 cm. KIDNEYS: The kidneys are normal in size, contour, and echotexture. The right kidney measures 9.6 cm, and the le ft kidney measures 10.7 cm. No hydronephrosis. No ascites. The visualized portions of the abdominal aorta (measures 1.5 cm in diameter) has normal caliber. IMPRESSION Unremarkable ultrasound of the abdomen Performing Organization Address City/State/Zipcode Phone Number PACS/VR/DOSE documented in this encounter Visit Diagnoses Diagnosis Upper abdominal pain Abdominal pain, other specified site Other acute gastritis without hemorrhage documented in this encounter Insurance Payer Benefit Plan / Subscriber ID Effective Dates Phone Addre ss Type Group MEDICARE MEDICARE PART [id number] 2010-Timmy [phone] [address] Medicare A & B t 2 [id number] [place] [id number] FAHEEM COOLEY [id number] 2010-Selvin goodrich nt documented as of this encounter
--- OUTSIDE RECORDS SUMMARY | 2019-10-24 22:10 | XMS REPORT | Summary of Care ---
:1945 Author Organization [facility] Address [address] [place] [id number] Care Team Providers Name Role Phone MD Daniel Primary Care Provider Reason for Visit Reason Comments Flank Pain PAIN WITH URINATION Auth/Cert Status Reason Specialty Diagnoses / Referred By Referred To Procedures Contact Contact Emergency Medicine [facility] Em ergency Dept [address] [place] [address] Fax: Encounter Details Date Type Department Care Team Description 09/28/2019 Emergency ADC-Emergency Veronica Pappas FNP Cystitis (Primary Dx); Department [address] [place] [address] Dysuria; [address] [place], [place] [address] [facility] [address] [place], [place] [id number] Allergies Active Allergy Reactions Severity Noted Date Comments Sulfamethoxazole Unknown - See comments 09/28/2019 " Makes me feel horrible" documented as of this encounter (statuses as of 09/28/2019) Medications Medication Sig Dispensed Refills Start Date End Date Status cephALEXin (KEFLEX) Take 1 capsule by 14 capsule 0 09/28/2019 10/05/2019 Active 500 mg mouth 2 (two) capsuleIndications: times daily for 7 Cystitis days. documented as of this encounter (statuses as of 09/28/2019) Active Problems No known active problemsdocumented as of this encounter (statuses as of 09/28/2019) Social History Tobacco Use Types Packs/Day Years [...] Sign Reading Time Taken Comments Blood Pressure 166/80 09/28/2019 7:05 PM CDT Pulse 84 09/28/2019 7:05 PM CDT Temperature 37.5 C (99.5 F) 09/28/2019 4:24 PM CDT Respiratory Rate 18 09/28/2019 7:05 PM CDT Oxygen Saturation 99% 09/28/2019 7:05 PM CDT Inhaled Oxygen Concentration - - Weight 63.5 kg (140 lb) 09/28/2019 4:24 PM CDT Height 152.4 cm (5') 09/28/2019 4:24 PM CDT Body Mass Index 27.34 09/28/2019 4:24 PM CDT documented in this encounter Discharge Instructions Veronica Esparza FNP - 09/28/2019Please return to the ER if you have any worsening abdominal pain, fever, nausea, vomiting, chills, back pain, are unable to urinate or any other symptoms you feel are abnormal. An antibiotic has been prescribed for you, please take as directed. Please follow up with your primary care doctor as soon aspossible. Thank you. AttachmentsThe following attachments cannot be sent through Care Everywhere. Urinary Tract Infections (UTIs), Understanding (Vietnamese)Bladder Infection, Female (Adult) (Vietnamese)documented in this encounter ED Notes Marylou Robins RN - 09/28/2019 4:19 PM CDTCC: Patient present to ER from home. She stated that she is having pain with urination and right back/flank pain. She states that it has been going on two weeks. She states she saw her urologist Monday and was told she doesn't have a bladder infection. PMHx: Frequent UTI, PSH: total Hysterectomy, bladder rectum vaginal lift MEDS: Fish oil, Vit D LMP: Hysterectomy Tetanus: Not UTD Awake, alert, oriented, resp reg unlabored, skin warm, color appropriate for race, moves all ext without difficulty, amb without assist. Appears in no distress documented in this encounter Miscellaneous Notes ED Nurse Note - Janelle Eckert RN - 09/28/2019 7:30 PM CDTPt given printed and verbal discharge instructions regarding Cysitis, encouraged hydration, Prescriptions provided for Keflex Discussed antibiotic therapy and to take until all completed unless adverse reaction occurs - if occurs, discontinue medication and follow up with pcp/seek medical attention Pt verbalized understanding of instructions, pt awake alert oriented, resp reg unlabored, skin w/d, color appropriate for race, moves all ext well,pt encouraged to follow up with pcp Advised to seek medical attention for new/prolonged/worsening of symptoms, Symptoms were addressed No adverse reaction to meds given in ER noted upon discharge PIV d'cd, dressing to site, catheter in tact. Awake, alert oriented, resp reg unlabored, skin w/d, pt leaving amb with steady gait, in no apparent distress, documented in this encounter Plan of Treatment Name Type Priority Associated Diagnoses Date/Ti me Urine Culture LAB STAT Dysuria 09/28/2019 4:36 PM CDT Flank pain Name Type Priority Associated Diagnoses Order S chedule Urine Culture LAB PIO Dysuria PIO for 1 Occurrences starting Flank pain 09/28/2019 unti l 09/28/2019 Health Maintenance Due Date Last Done Comments HEPATITIS C (HCV) SCREEN 1945 DTaP,Tdap,and Td Vaccines (1 - Tdap) 1956 Depression Screening 1957 Breast Cancer Screening (MAMMOGRAM) 1985 COLONOSCOPY 10/28/1995 Zoster Recombinant Vaccine (SHINGRIX) 10/28/1995 (1 of 2) Medicare Wellness Visit 2010 PNEUMOCOCCAL VACCINES 65+ (1 of 2 - 2010 PCV13) INFLUENZA VACCINE (#1) 2019 Osteoporosis Screening 01/18/2028 01/17/2018, 09/22/2014, 09/22/2014 documented as of this encounter Procedures Procedure Name Priority Date/Time Associated Comments Diagnosis URINALYSIS STAT 09/28/2019 4:36 PM Dysuria Results for this CDT Flank pain procedure are i n the results section. CBC WITH DIFF STAT 09/28/2019 4:36 PM Dysuria Results for this CDT Flank pain procedure are i n the results section. COMP. METABOLIC STAT 09/28/2019 4:36 PM Dysuria Results for this PANEL (39915) CDT Flank pain procedure are in the results section. CONSENT/REFUSAL FOR Routine 09/28/2019 4:05 PM DIAGNOSIS AND CDT TREATMENT documented in this encounter Results COMP. METABOLIC PANEL (16388) (09/28/2019 4:36 PM CDT) Pathologist Sig nature NA 141 135 - 145 mmol/L [facility] K 3.8 3.5 - 5.0 mmol/L [facility] CL 106 98 - 108 mmol/L [facility] CO2 TOTAL 25 23 - 31 mmol/L [facility] AGAP 10 2 - 16 [facility] BUN 15 7 - 23 mg/dL [facility] GLUCOSE 93 70 - 110 mg/dL [facility] CREATININE 0.89 0.50 - 1.04 [facility] mg/dL [facility] TOTAL BILI 0.7 0.1 - 1.1 mg/dL [facility] CALCIUM 9.2 8.6 - 10.6 mg/dL [facility] T PROTEIN 8.2 6.3 - 8.2 g/dL [facility] ALBUMIN 4.5 3.5 - 5.0 g/dL [facility] ALK PHOS 70 34 - 122 U/L [facility] ALTv 12 5 - 35 U/L [facility] AST(SGOT) 28 13 - 40 U/L [facility] eGFR Calculation 62.2 mL/min/1.73m2 [facility] (Non-) [facility] Y eGFR Calculation 75.4 mL/min/1.73m2 [facility] () [facility] Specimen Blood - VENOUS Narrative Performed At Association of Glomerular Filtration Rate (GFR) [facility] and Staging of Kidney Disease* [...] tests). Performing Organization Address City/State/Zipcode Phone Number [facility] CLIA: [id number] [place] [address] CBC with Differential (09/28/2019 4:36 PM CDT) [facility] WBC 7.59 4.30 - 11.10 [facility] 10*3/L [facility] RBC 4.03 3.93 - 5.25 [facility] 10*6/L [facility] HGB 13.0 11.6 - 15.0 g/dL [facility] HCT 38.1 35.7 - 45.2 % [facility] MCV 94.5 80.6 - 95.5 fL [facility] MCH 32.3 25.9 - 32.8 pg [facility] MCHC 34.1 31.6 - 35.1 g/dL [facility] RDW-SD 45.9 39.0 - 49.9 fL [facility] RDW-CV 13.2 12.0 - 15.5 % [facility] PLT 262 166 - 358 [facility] 10*3/L [facility] MPV 9.5 9.5 - 12.9 fL [facility] NRBC/100 WBC 0.0 0.0 - 10.0 /100 [facility] WBCs [facility] NRBC x10^3 <0.01 10*3/L [facility] GRAN MAT (NEUT) % 55.7 % [facility] IMM GRAN % 0.30 % [facility] LYMPH % 33.1 % [facility] MONO % 9.7 % [facility] EOS % 0.7 % [facility] BASO % 0.5 % [facility] GRAN MAT x10^3(ANC) 4.23 1.88 - 7.09 [facility] 10*3/uL HOSPITAL LAB[facility] IMM GRAN x10^3 <0.03 0.00 - 0.06 [facility] 10*3/uL [facility] LYMPH x10^3 2.51 1.32 - 3.29 [facility] 10*3/uL [facility] MONO x10^3 0.74 0.33 - 0.92 [facility] 10*3/uL H[facility]PITAL [facility] EOS x10^3 0.05 0.03 - 0.39 [facility] 10*3/uL [facility] BASO x10^3 0.04 0.01 - 0.07 [facility] 10*3/uL [facility] Specimen Blood - VENOUS Performing Organization Address City/State/Zipcode Phone Number [facility] CLIA: [id number] [place], [place] [phone] LABORATORY [address] Urinalysis (09/28/2019 4:36 PM CDT) Pathologist Sig nature APPEARANCE Hazy (A) Clear [facility] COLOR Yellow Yellow [facility] PH 5.0 4.8 - 8.0 [facility] SP GRAVITY 1.021 1.003 - 1.030 [facility] GLU U QUAL Normal Normal [facility] BLOOD Negative Negative [facility] KETONES 80 mg/dL (A) Negative [facility] PROTEIN Negative Negative [facility] UROBILIN 4.0 mg/dL (A) Normal [facility] BILIRUBIN Negative Negative [facility] NITRITE Negative Negative [facility] LEUK NISHA 75/uL (A) Negative [facility] RBC/HPF 5 (H) 0 - 3 HPF [facility] WBC/HPF 8 (H) 0 - 5 HPF [facility] BACTERIA Few (A) Negative [facility] MUCOUS Moderate (A) Negative LPF [facility] SQ EPITH 10 HPF [facility] HYAL CAST 1 <=2 LPF [facility] Specimen Urine - URINE, CLEAN CATCH Performing Organization Address City/State/Zipcode Phone Number [facility] CLIA: [id number] [place] [address] documented in this encounter Visit Diagnoses Diagnosis Cystitis - Primary Cystitis, unspecified Dysuria Flank pain Abdominal pain, unspecified site documented in this encounter Administered Medications Medication Order MAR Action Action Date Dose Rate Site ceFAZolin (ANCEF) 1,000 mg in Given 09/28/2019 6:25 PM CDT 1,00 0 mg NaCl 0.9% (NS) 50 mL MINI-BAG 1,000 mg, IV Piggyback, ONCE, 1 dose, 09/28/19 at 1915, 50 mL, Reason for Anti-Infective: Documented Infection, Documented Infection Site: Urine, Duration of Therapy: 7 days NaCl 0.9% (NS) bolus infusion New Bag 09/28/2019 6:24 PM CDT 1,000 mL 999 mL/hr 1,000 mL at 999 mL/hr, 1,000 mL, IV Infusion, ONCE, 1 dose, 09/28/19 at 1815, PIO documented in this encounter Insurance Payer Benefit Plan / Subscriber ID Effective Dates Phone Addre ss Type Group MEDICARE MEDICARE PART [id number] 2010-Timmy [phone] Medicare A & B t 2 [id number] [place] [id number] FAHEEM COOLEY [id number] 2010-Selvin goodrich nt documented as of this encounter
--- NOTE | 2019-10-24 23:33 | ER ---
Nurse's Notes [facility] Name: Toma Paul Age: 73 yrs Sex: Female : 1945 Arrival Date: 10/24/2019 Time: 22:09 Bed 13 Private MD: Diagnosis: Interstitial cystitis (chronic) without hematuria Presentation: 10/23 22:23 Chief complaint: Patient states: I have a headache, I feel nauseous, my stomach is jb4 gurgling, and every once and a while my privates ache. I had an abdominal surgery and had a mesh put in and one day I felt a pop and have been having this problem since. Coronavirus screen: Client denies travel out of the [place] in the last 14 days. At this time, the client does not indicate any symptoms associated with coronavirus-19. Ebola Screen: No symptoms or risks identified at this time. Initial Sepsis Screen: Does the patient meet any 2 criteria? HR > 90 bpm. Yes Does the patient have a suspected source of infection? No. Patient's initial sepsis screen is negative. Risk Assessment: Do you want to hurt yourself or someone else? Patient reports no desire to harm self or others. Onset of symptoms was October 24, 2019. Transition of care: patient was not received from another setting of care. 22:23 Method Of Arrival: Ambulatory jb4 22:23 Acuity: VINCENT 3 jb4 Triage Assessment: 22:23 Headache History: The patient has had previous headaches and this one is similar to jb4 previous episodes. General: Appears in no apparent distress. uncomfortable, Behavior is calm, cooperative. Pain: Complains of pain in back, abdomen and pelvis, Headache Pain does not radiate. Pain currently is 8 out of 10 on a pain scale. Quality of pain is described as aching, crampy, Pain began 5 years ago Is continuous, Also complains of nausea. EENT: No signs and/or symptoms were reported regarding the EENT system. Neuro: Level of Consciousness is awake, alert, obeys commands, Oriented to person, place, time, situation. Cardiovascular: Patient's skin is warm and dry. Respiratory: Airway is patent Respiratory effort is even, unlabored, Respiratory pattern is regular, symmetrical. GI: Abdomen is round non-distended, Reports nausea. : No signs and/or symptoms were reported regarding the genitourinary system. Derm: Skin is intact, Skin is pink, warm \T\ dry. Musculoskeletal: Circulation, motion, and sensation intact. Range of motion: intact in all extremities. Historical: - Allergies: 22:23 Bactrim; jb4 - Home Meds: 22:23 Fish Oil oral oral [Active]; Vitamin D Oral [Active]; Amoxicillin Oral [Active]; jb4 - PMHx: 22:23 None; jb4 - PSHx: 22:23 Hysterectomy; Abd Sacral Colpopexy and Abd Enterocele Repair; jb4 - Immunization history:: Adult Immunizations unknown. - Social history:: Smoking status: Patient denies any tobacco usage or history of. Patient/guardian denies using alcohol, street drugs. Screenin:23 Abuse screen: Denies threats or abuse. Nutritional screening: No deficits noted. jb4 Tuberculosis screening: No symptoms or risk factors identified. Fall Risk None identified. Assessment: 22:33 General: See triage assessment. jb4 23:30 Reassessment: Patient appears in no apparent distress at this time. Patient and/or iw family updated on plan of care and expected duration. Pain level reassessed. Patient is alert, oriented x 3, equal unlabored respirations, skin warm/dry/pink. 10/24 00:34 Reassessment: Patient appears in no apparent distress at this time. Patient and/or iw family updated on plan of care and expected duration. Pain level reassessed. Patient is alert, oriented x 3, equal unlabored respirations, skin warm/dry/pink. PT verbalized understanding of d/c and follow up instructions. Denies questions or concerns. Ambulated out of ED with steady gait. Vital Signs: 10/23 22:23 BP 180 / 97; Pulse 95; Resp 16; Temp 98.7(O); Pulse Ox 100% on R/A; Weight 61.23 kg jb4 (R); Height 5 ft. 0 in. (152.40 cm) (R); Pain 8/10; 22:30 BP 170 / 84; Pulse 87; Resp 16; Pulse Ox 99% on R/A; iw 10/24 00:00 BP 165 / 78; Pulse 83; Resp 16; Pulse Ox 97% on R/A; iw 10/23 22:23 Body Mass Index 26.37 (61.23 kg, 152.40 cm) jb4 ED Course: 10/23 22:09 Patient arrived in ED. ag3 22:11 Roosevelt Miller, RN is Primary Nurse. jb4 22: Arm band placed on right wrist. jb4 22:23 Patient has correct armband on for positive identification. Bed in low position. Call jb4 light in reach. Side rails up X 1. Pulse ox on. NIBP on. 22:26 Triage completed. jb4 : Tel[facility] Mckay FNP-C [facility] snw 22: Andreas Alvares MD is Attending Physician. w 10/24 00:35 No provider procedures requiring assistance completed. Patient did not have IV access iw during this emergency room visit. Administered Medications: 00:00 Drug: Librium 5 mg Route: PO; jb4 00:30 Follow up: Response: No adverse reaction iw 00:28 Drug: Amitriptyline 10 mg Route: PO; iw 00:36 Follow up: Response: No adverse reaction; Medication administered at discharge. iw Outcome: 10/23 23:33 Discharge ordered by . snw 10/24 00:35 Discharged to home ambulatory. iw Condition: stable Discharge instructions given to patient, Instructed on discharge instructions, follow up and referral plans. medication usage, Demonstrated understanding of instructions, follow-up care, medications, Prescriptions given X 1. 00:36 Patient left the ED. iw Addendum: 10/28/2019 17:14 Addendum: Culture Results: Positive urine culture. Patient was not prescribed i w antibiotics at discharge. Report given to AMELIA for further evaluation and then to ethnographic materials conservator for follow up with patient. Phone call Prescription called-in to pharmacy of choice. called in Macrobid 100 mg BID X 10 days, no refills by Nely Hollis. Signatures: Telma Mckay FNP-C FNP-CsnEvette Giordano RN RN iw Roosevelt Miller, RN RN jb4 Eunice Jean ag3
--- NOTE | 2019-10-24 23:33 | EDPHYS ---
Physician Documentation [facility] Name: Toma Paul Age: 73 yrs Sex: Female : 1945 Arrival Date: 10/24/2019 Time: 22:09 Bed 13 Private MD: ED Physician Andreas Alvares HPI: 10/23 23:53 This 73 yrs old Female presents to ER via Ambulatory with complaints of snw chronic abdominal/pelvic pain. 23:53 The patient presents with urinary symptoms, dysuria, frequency, hesitancy, urgency. snw Onset: The symptoms/episode began/occurred acutely. Associated signs and symptoms: Pertinent positives: constipation, dysuria, urinary frequency. Severity of symptoms: At their worst the symptoms were moderate, severe. The patient has experienced similar episodes in the past, chronically. The patient has been recently seen by a physician:. CT abd/pelvis 6 days ago. Historical: - Allergies: 22:23 Bactrim; jb4 - Home Meds: 22:23 Fish Oil oral oral [Active]; Vitamin D Oral [Active]; Amoxicillin Oral [Active]; jb4 - PMHx: 22:23 None; jb4 - PSHx: 22:23 Hysterectomy; Abd Sacral Colpopexy and Abd Enterocele Repair; jb4 - Immunization history:: Adult Immunizations unknown. - Social history:: Smoking status: Patient denies any tobacco usage or history of. Patient/guardian denies using alcohol, street drugs. ROS: 23:50 Constitutional: Negative for fever, chills, and weight loss, Eyes: Negative for injury, snw pain, redness, and discharge, ENT: Negative for injury, pain, and discharge, Neck: Negative for injury, pain, and swelling, Cardiovascular: Negative for chest pain, palpitations, and edema, Respiratory: Negative for shortness of breath, cough, wheezing, and pleuritic chest pain, Abdomen/GI: Positive for abdominal pain, nausea, Negative for vomiting, diarrhea, and constipation, Back: Negative for injury and pain. 23:50 MS/Extremity: Negative for injury and deformity, Skin: Negative for injury, rash, and discoloration, Neuro: Negative for headache, weakness, numbness, tingling, and seizure. 23:50 : Positive for dysuria. Exam: 23:46 Constitutional: This is a well developed, well nourished patient who is awake, alert, snw and in no acute distress. Head/Face: Normocephalic, atraumatic. Eyes: Pupils equal round and reactive to light, extra-ocular motions intact. Lids and lashes normal. Conjunctiva and sclera are non-icteric and not injected. Cornea within normal limits. Periorbital areas with no swelling, redness, or edema. ENT: Nares patent. No nasal discharge, no septal abnormalities noted. Tympanic membranes are normal and external auditory canals are clear. Oropharynx with no redness, swelling, or masses, exudates, or evidence of obstruction, uvula midline. Mucous membranes moist. Neck: Trachea midline, no thyromegaly or masses palpated, and no cervical lymphadenopathy. Supple, full range of motion without nuchal rigidity, or vertebral point tenderness. No Meningismus. Chest/axilla: Normal chest wall appearance and motion. Nontender with no deformity. No lesions are appreciated. Cardiovascular: Regular rate and rhythm with a normal S1 and S2. No gallops, murmurs, or rubs. Normal PMI, no JVD. No pulse deficits. Respiratory: Lungs have equal breath sounds bilaterally, clear to auscultation and percussion. No rales, rhonchi or wheezes noted. No increased work of breathing, no retractions or nasal flaring. Back: No spinal tenderness. No costovertebral tenderness. Full range of motion. Skin: Warm, dry with normal turgor. Normal color with no rashes, no lesions, and no evidence of cellulitis. Neuro: Awake and alert, GCS 15, oriented to person, place, time, and situation. Cranial nerves II-XII grossly intact. Motor strength 5/5 in all extremities. Sensory grossly intact. Cerebellar exam normal. Normal gait. 23:46 MS/ Extremity: Pulses equal, no cyanosis. Neurovascular intact. Full, normal range of motion. 23:46 Abdomen/GI: Inspection: obese Bowel sounds: normal, Palpation: mild abdominal tenderness, in the right lower quadrant and left lower quadrant, moderate abdominal tenderness. 23:46 Psych: Behavior/mood is depressed, frustrated. Affect is calm, Oriented to person, place, time, pt is extremely frustrated as she has had multiple doctors visits, ED visits, specialist visits, labs, cultures, procedures, and ct scans without a diagnosis. She knows antibiotics seem to help but the problem recurs and noone can answer why she has almost constant dysuria and bladder pain. Discussed interstitial cystitis and will give Elavil/Librium tonight. Will rx Elavil 25mg q hs and have pt follow up.. Vital Signs: 22:23 BP 180 / 97; Pulse 95; Resp 16; Temp 98.7(O); Pulse Ox 100% on R/A; Weight 61.23 kg jb4 (R); Height 5 ft. 0 in. (152.40 cm) (R); Pain 8/10; 22:30 BP 170 / 84; Pulse 87; Resp 16; Pulse Ox 99% on R/A; iw 10/24 00:00 BP 165 / 78; Pulse 83; Resp 16; Pulse Ox 97% on R/A; iw 10/23 22:23 Body Mass Index 26.37 (61.23 kg, 152.40 cm) jb4 MDM: 10/23 22:32 Patient medically screened. [facility] 23:51 Data reviewed: vital signs, nurses notes. Data interpreted: Pulse oximetry: on room air snw is 100 %. Interpretation: normal. Counseling: I had a detailed discussion with the patient and/or guardian regarding: the historical points, exam findings, and any diagnostic results supporting the discharge/admit diagnosis, lab results, the need for outpatient follow up, for definitive care, to return to the emergency department if symptoms worsen or persist or if there are any questions or concerns that arise at home. 10/23 23:13 Order name: Urine Culture [facility] 10/23 23:13 Order name: Urine Microscopic Only [facility] 10/23 23:14 Order name: Urine Culture [facility] 10/23 23:14 Order name: Urine Microscopic Only; Complete Time: 23:46 [facility] 10/23 23:28 Order name: Urine Dipstick--Ancillary (enter results); Complete Time: 23:46 [facility] 10/23 23:13 Order name: Urine Dipstick-Ancillary (obtain specimen); Complete Time: 23:35 snw Administered Medications: 10/24 00:00 Drug: Librium 5 mg Route: PO; jb4 00:30 Follow up: Response: No adverse reaction iw 00:28 Drug: Amitriptyline 10 mg Route: PO; iw 00:36 Follow up: Response: No adverse reaction; Medication administered at discharge. iw Disposition: 06:15 Co-signature as Attending Physician, Andreas Alvares MD I agree with the assessment and leilani plan of care. Disposition: 10/24/19 23:33 Discharged to Home. Impression: Interstitial cystitis (chronic) without hematuria. - Condition is Stable. - Discharge Instructions: Interstitial Cystitis. - Prescriptions for Amitriptyline 25 mg Oral Tablet - take 1 tablet by ORAL route At bedtime As needed; 30 tablet. - Medication Reconciliation Form, Thank You Letter, Antibiotic Education, Prescription Opioid Use form. - Follow up: Emergency Department; When: As needed; Reason: Worsening of condition. Follow up: Private Physician; When: 1 week; Reason: Recheck today's complaints, Continuance of care, Re-evaluation by your physician. Signatures: Dispatcher [employer] Andreas Sheldon MD MD cha Waters, Shelly, TRIALS MANAGER-C TRIALS MANAGER-Csnw Evette Mendoza RN RN iw Roosevelt Miller RN RN jb4 Corrections: (The following items were deleted from the chart) 00:36 10/23 23:33 10/24/2019 23:33 Discharged to Home. Impression: Interstitial cystitis iw (chronic) without hematuria. Condition is Stable. Forms are Medication Reconciliation Form, Thank You Letter, Antibiotic Education, Prescription Opioid Use. Follow up: Emergency Department; When: As needed; Reason: Worsening of condition. Follow up: Private Physician; When: 1 week; Reason: Recheck today's complaints, Continuance of care, Re-evaluation by your physician. snw
[2019-10-24 23:42] LABS: Urine Bacteria <20 /HPF (<20); Urine Culture Reflex Order NOT NEEDED; Urine RBC <5 /HPF (NONE SEEN); Urine Urothelial Cells <5 /HPF (NONE SEEN)
[2019-10-24 23:43] LABS: Urine Blood NEGATIVE (NEG); Urine Glucose NEGATIVE (NEG); Urine Protein NEGATIVE (NEG); Urine pH 6.5 (5.0-7.0)
[2019-10-25] MEDS ORDERED: chlordiazePOXIDE HCl 5 MG CAP PO ONE (00:06)
[2019-10-25] MEDS ORDERED: AMITRIPTYLINE 10 MG TAB ONE (00:19)
[2019-10-29 08:15] VITALS: TEMP 98.7
[2019-10-29 08:17] VITALS: BP 165/78; O2SAT 97
== END 2019-10-25 00:36 | disposition home or self-care (01) ==
LOC: ER 22:07
DX: N30.10 Interstitial cystitis (chronic) without hematuria (principal); Z88.1 Allergy status to other antibiotic agents
CPT/HCPCS: 81003; 81015; 87077; 87086; 87088; 87186; 99283

== ENCOUNTER 2024-04-15 19:27 | Emergency (ER) | payer OTHER ==
--- OUTSIDE RECORDS SUMMARY | 2024-04-15 19:30 | XMS REPORT | Continuity of Care Document ---
Author Name Unknown Address [address] [facility] [place] [address] [facility] Address [address] [facility] [place] [address] Care Team Providers Care Information [employer] Name Role Phone [id number] Primary Care Physician UnavailNadine Perez Attending Clinician Unavailable SUMAN CARRASCO Attending Clinician Unavailable LEISA HOWELL Attending Clinician Leisa Wade MD Attending Clinician [phone]- [phone] Doctor Unassigned, [place] Attending Clinician Rajinder Clemente MD Attending Clinician [phone] Radiology Attending Clinician Unavailable Veronica Arce Attending Clinician [phone] Beckie Gonzalez Attending Clinician [phone] Unknown, Attending Attending Clinician BECKIE Saxena Attending Clinician Unavailable LEISA HOWELL Admitting Clinician Enrique mckinley Payers Payer Name Policy Type Policy Number Effective Date Expirati on Date Source MEDICARE PART A \\T\\ B [id number] 2010 00:00:00 [place] [id number] 2010 00:00:00 MEDICARE PART A AND B [id number] 2010 00:00:00 MEDICARE SUPPLEMENT [id number] 2010 00:00:00 [id number] 2020 00:00:00 Problems Condition Name Condition Details Condition Category Status Onset Date Resolution Date Last Treatment Date Treating Clinician Comments Source [id number] Bladder pain Problem [facility] [id number] BMI 26.0-26.9, adult Problem [facility] [id number] Diverticul osis Problem [facility] [id number] Vitamin D deficiency Problem [facility] [id number] Dysuria Problem [facility] [id number] Thinning hair Problem [facility] [id number] CKD (chronic kidney disease) stage 2, GFR 60-89 ml/min Problem [facility] [id number] Prediabete s Problem [facility] [id number] Skin lesion Problem [facility] [id number] Osteopenia of left hip Problem [facility] [id number] Mixed hyperlipid emia Problem [facility] [id number] Essential hypertensi on Problem [facility] Overactive bladder Overactive bladder Problem [facility] No known active problems No known active problems Disease [facility] Allergies, Adverse Reactions, Alerts Allergy Name Allergy Type Status Severity Reaction(s) Onset Date Inactive Date Treating Clinician Comments Source SULFAMET HOXAZOLE -TRIMETH OPRIM DRUG Active Low Anxiety 09-20 00:00: 00 MD Carlos zamora SULFAMET HOXAZOLE -TRIMETH OPRIM DRUG Active Low Anxiety 09-20 00:00: 00 MD Carlos zamora SULFAMET HOXAZOLE -TRIMETH OPRIM DRUG Active Low Anxiety 09-20 00:00: 00 MD Carlos zamora SULFAMET HOXAZOLE -TRIMETH OPRIM DRUG Active Low Anxiety 09-20 00:00: 00 MD Carlos zamora SULFAMET HOXAZOLE -TRIMETH OPRIM DRUG Active Low Anxiety 2021-0 725 00:00: 00 MD Carlos zamora SULFAMET HOXAZOLE -TRIMETH OPRIM DRUG Active Low Anxiety 2022-0 725 00:00: 00 MD Carlos zamora SULFAMET HOXAZOLE -TRIMETH OPRIM DRUG Active Low Anxiety 2022-0 7 00:00: 00 MD Carlos zamora SULFAMET HOXAZOLE -TRIMETH OPRIM DRUG Active Low Anxiety 2022-0 725 00:00: 00 MD Carlos zamora SULFAMET HOXAZOLE -TRIMETH OPRIM DRUG Active Low Anxiety 2022-0 09-20 00:00: 00 MD Carlos zamora SULFAMET HOXAZOLE -TRIMETH OPRIM DRUG Active Low Anxiety 2-0 09-20 00:00: 00 MD Carlos zamora SULFAMET HOXAZOLE -TRIMETH OPRIM DRUG Active Low Anxiety 2022-0 09-20 00:00: 00 MD Carlos zamora SULFAMET HOXAZOLE -TRIMETH OPRIM DRUG Active Low Anxiety 2-0 09-20 00:00: 00 MD Carlos zamora SULFAMET HOXAZOLE -TRIMETH OPRIM DRUG Active Low Anxiety 2022-0 09-20 00:00: 00 MD Carlos zamora SULFAMET HOXAZOLE -TRIMETH OPRIM DRUG Active Low Anxiety 2-0 09-20 00:00: 00 MD Carlos zamora SULFAMET HOXAZOLE DRUG INGREDI Active Unknown-Cmnt 0 8- 00:00: 00 [facility] Sulfamet hoxazole Propensi ty to adverse reaction s Active Unknown - See comments 8 00:00: 00 "Makes me feel horrible" [facility] NO KNOWN ALLERGIE S Drug Class Active [facility] sulfamet hoxazole / trimetho prim sulfamet hoxazole / trimetho prim Active weak and could not see [facility] Social History Social Habit Start Date Stop Date Quantity Comments Source History of Tobacco Use [facility] Sex Assigned At [facility] Exposure to SARS-CoV-2 (event) Not sure [facility] Tobacco use and exposure 2019-01-17 00:00:2019-01-17 00:00:00 Never used [facility] Smoking Status Start Date Stop Date Source Never Smoker [facility] Medications Ordered Medication Name Filled Medication Name Start Date Stop Date Current Medication? Ordering Clinician Indication Dosage Frequency Signature (SIG) Comments Components Source Rosuvastati n Calcium 20 MG Rosuvastati n Calcium 20 MG 09-26 00:00: 00 No 1{table t} QD Rosuvastat in Calcium 20 MG iohexol (OMNIPAQUE 350 BULK-100 mL) injection 100 mL 10-19 15:30: 00 10-19 15:21 :00 No 100mL 100 mL, Intravenou s, ONCE, 1 dose, 10/20/19 at 1030, Routine [facility] amoxicillin 500 mg capsule 10-19 00:00: 00 Yes [id number] 500mg Take 1 capsule by mouth 3 (three) times daily. [facility] ceFAZolin (ANCEF) 1,000 mg in NaCl 0.9% (NS) 50 mL MINI-BAG 09-28 00:15: 09-27 23:55 :00 No 1000mg 1,000 mg, IV Piggyback, ONCE, 1 dose, 09/28/19 at 1915, 50 mL
Reas on for Anti-Infec tive: Documented Infection< br>Documen melba Infection Site: Urine
D uration of Therapy: 7 days [facility] NaCl 0.9% (NS) bolus infusion 1,000 mL 09-27 23:15: 00 09-28 00:30 :00 No 1000mL at 999 mL/hr, 1,000 mL, IV Infusion, ONCE, 1 dose, 09/28/19 at 1815, PIO [facility] cephALEXin (KEFLEX) 500 mg capsule 09-27 00:00: 00 10-05 04:59 :00 No [id number] 500mg Take 1 capsule by mouth 2 (two) times daily for 7 days. [facility] cephALEXin (KEFLEX) 500 mg capsule 2018-02 00:00: 00 01-23 05:59 :00 No [id number] 500mg Take 1 capsule by mouth 2 (two) times daily for 5 days. Univers [facility] Culturelle Probiotics - Culturelle Probiotics - No Culturelle Probiotics - Lisinopril 10 MG Lisinopril 10 MG No 1{table t} QD Lisinopril 10 MG Aspirin 81 81 MG Aspirin 81 81 MG No 1{table t} Aspirin 81 81 MG Vitamin D3 250 MCG (89234 [place]) Vitamin D3 250 MCG (38945 [place]) No Vitamin D3 250 MCG (43415 [place]) Fish Oil 1200 MG Fish Oil 1200 MG No 1{capsu le} QD Fish Oil 1200 MG No known medications No Un alfred [facility] Vital Signs Vital Name Observation Time Observation Value Comments S ource height 2023-12-13 15:00:00 60 [in_i] [facility] weight 2023-12-13 15:00:00 138.2 [lb_av] Co [facility] temperature 2023-12-13 15:00:00 97.3 [degF] Com [facility] bmi 2023-12-13 15:00:00 26.99 kg/m2 [facility] oximetry 2023-12-13 15:00:00 97 % [facility] respiratory rate 2023-12-13 15:00:00 16 /min [facility] blood pressure systolic 2023-12-13 15:00:00 139 mm[Hg] [facility] blood pressure diastolic 2023-12-13 15:00:00 75 mm[Hg] [facility] height 2023-12-06 14:20:00 60 [in_i] [facility] weight 2023-12-06 14:20:00 139.2 [lb_av] Co [facility] temperature 2023-12-06 14:20:00 97.9 [degF] Com [facility] bmi 2023-12-06 14:20:00 27.18 kg/m2 [facility] oximetry 2023-12-06 14:20:00 98 % [facility] respiratory rate 2023-12-06 14:20:00 16 /min [facility] blood pressure systolic 2023-12-06 14:20:00 136 mm[Hg] [facility] blood pressure diastolic 2023-12-06 14:20:00 82 mm[Hg] [facility] height 2023-09-14 08:20:00 60 [in_i] [facility] weight 2023-09-14 08:20:00 140.6 [lb_av] [facility] temperature 2023-09-14 08:20:00 97.3 [degF] Com [facility] bmi 2023-09-14 08:20:00 27.46 kg/m2 [facility] oximetry 2023-09-14 08:20:00 95 % [facility] respiratory rate 2023-09-14 08:20:00 16 /min [facility] blood pressure systolic 2023-09-14 08:20:00 139 mm[Hg] [facility] blood pressure diastolic 2023-09-14 08:20:00 82 mm[Hg] Common [facility] height 2023-09-14 08:20:00 60 [in_i] [facility] weight 2023-09-14 08:20:00 140.6 [lb_av] [facility] temperature 2023-09-14 08:20:00 97.3 [degF] [facility] bmi 2023-09-14 08:20:00 27.46 kg/m2 [facility] oximetry 2023-09-14 08:20:00 95 % [facility] respiratory rate 2023-09-14 08:20:00 16 /min [facility] blood pressure systolic 2023-09-14 08:20:00 139 mm[Hg] [facility] blood pressure diastolic 2023-09-14 08:20:00 82 mm[Hg] [facility] height 2023-05-10 14:20:00 60 [in_i] [facility] weight 2023-05-10 14:20:00 136.2 [lb_av] [facility] temperature 2023-05-10 14:20:00 98.2 [degF] [facility] bmi 2023-05-10 14:20:00 26.6 kg/m2 [facility] oximetry 2023-05-10 14:20:00 99 % [facility] respiratory rate 2023-05-10 14:20:00 16 /min [facility] blood pressure systolic 2023-05-10 14:20:00 128 mm[Hg] [facility] blood pressure diastolic 2023-05-10 14:20:00 76 mm[Hg] [facility] height 2023-02-13 14:40:00 60 [in_i] [facility] weight 2023-02-13 14:40:00 136.0 [lb_av] [facility] temperature 2023-02-13 14:40:00 97.7 [degF] [facility] bmi 2023-02-13 14:40:00 26.56 kg/m2 [facility] oximetry 2023-02-13 14:40:00 96 % [facility] respiratory rate 2023-02-13 14:40:00 15 /min [facility] blood pressure systolic 2023-02-13 14:40:00 126 mm[Hg] [facility] blood pressure diastolic 2023-02-13 14:40:00 73 mm[Hg] Common [facility] height 2022-11-15 09:00:00 60 [in_i] [facility] weight 2022-11-15 09:00:00 136.4 [lb_av] Co [facility] temperature 2022-11-15 09:00:00 97.2 [degF] [facility] bmi 2022-11-15 09:00:00 26.64 kg/m2 [facility] oximetry 2022-11-15 09:00:00 97 % [facility] respiratory rate 2022-11-15 09:00:00 16 /min [facility] blood pressure systolic 2022-11-15 09:00:00 132 mm[Hg] [facility] blood pressure diastolic 2022-11-15 09:00:00 78 mm[Hg] [facility] oximetry 2022-08-16 10:00:00 95 % [facility] respiratory rate 2022-08-16 10:00:00 16 /min [facility] blood pressure systolic 2022-08-16 10:00:00 138 mm[Hg] [facility] blood pressure diastolic 2022-08-16 10:00:00 84 mm[Hg] [facility] height 2022-08-16 10:00:00 60 [in_i] [facility] weight 2022-08-16 10:00:00 140.2 [lb_av] Co [facility] temperature 2022-08-16 10:00:00 97.3 [degF] [facility] bmi 2022-08-16 10:00:00 27.38 kg/m2 [facility] height 2022-05-11 16:00:00 60 [in_i] [facility] weight 2022-05-11 16:00:00 139.8 [lb_av] [facility] temperature 2022-05-11 16:00:00 97.6 [degF] Com [facility] bmi 2022-05-11 16:00:00 27.3 kg/m2 [facility] oximetry 2022-05-11 16:00:00 99 % [facility] respiratory rate 2022-05-11 16:00:00 16 /min [facility] blood pressure systolic 2022-05-11 16:00:00 132 mm[Hg] [facility] blood pressure diastolic 2022-05-11 16:00:00 78 mm[Hg] Common [facility] height 2022-05-11 16:00:00 60 [in_i] [facility] weight 2022-05-11 16:00:00 139.8 [lb_av] [facility] temperature 2022-05-11 16:00:00 97.6 [degF] Com [facility] bmi 2022-05-11 16:00:00 27.3 kg/m2 [facility] oximetry 2022-05-11 16:00:00 99 % [facility] respiratory rate 2022-05-11 16:00:00 16 /min [facility] blood pressure systolic 2022-05-11 16:00:00 132 mm[Hg] [facility] blood pressure diastolic 2022-05-11 16:00:00 78 mm[Hg] [facility] height 2022-02-14 10:20:00 60 [in_i] [facility] weight 2022-02-14 10:20:00 138.6 [lb_av] [facility] temperature 2022-02-14 10:20:00 98.1 [degF] [facility] bmi 2022-02-14 10:20:00 27.07 kg/m2 [facility] oximetry 2022-02-14 10:20:00 98 % [facility] respiratory rate 2022-02-14 10:20:00 16 /min [facility] blood pressure systolic 2022-02-14 10:20:00 132 mm[Hg] [facility] blood pressure diastolic 2022-02-14 10:20:00 78 mm[Hg] [facility] Systolic blood pressure 2019-10-20 17:00:00 165 mm[Hg] [facility] Diastolic blood pressure 2019-10-20 17:00:00 88 mm[Hg] [facility] Heart rate 2019-10-20 17:00:00 77 /min [facility] Respiratory rate 2019-10-20 17:00:00 15 /min [facility] Oxygen saturation in Arterial blood by Pulse oximetry 2019-10-20 17:00:00 98 /min [facility] Body temperature 2019-10-20 14:02:00 37.44 Luann [facility] Body weight 2019-10-20 14:02:00 62.143 kg [facility] BMI 2019-10-20 14:02:00 26.76 kg/m2 [facility] Systolic blood pressure 2019-10-20 17:00:00 165 mm[Hg] [facility] Diastolic blood pressure 2019-10-20 17:00:00 88 mm[Hg] [facility] Heart rate 2019-10-20 17:00:00 77 /min [facility] Respiratory rate 2019-10-20 17:00:00 15 /min [facility] Oxygen saturation in Arterial blood by Pulse oximetry 2019-10-20 17:00:00 98 /min [facility] Body temperature 2019-10-20 14:02:00 37.44 Luann [facility] Body weight 2019-10-20 14:02:00 62.143 kg [facility] BMI 2019-10-20 14:02:00 26.76 kg/m2 [facility] Systolic blood pressure 2019-09-29 00:05:00 166 mm[Hg] [facility] Diastolic blood pressure 2019-09-29 00:05:00 80 mm[Hg] [facility] Heart rate 2019-09-29 00:05:00 84 /min [facility] Respiratory rate 2019-09-29 00:05:00 18 /min [facility] Oxygen saturation in Arterial blood by Pulse oximetry 2019-09-29 00:05:00 99 /min [facility] Body temperature 2019-09-28 21:24:00 37.5 Luann [facility] Body height 2019-09-28 21:24:00 152.4 cm [facility] Body weight 2019-09-28 21:24:00 63.504 kg [facility] BMI 2019-09-28 21:24:00 27.34 kg/m2 [facility] Systolic blood pressure 2019-09-29 00:05:00 166 mm[Hg] [facility] Diastolic blood pressure 2019-09-29 00:05:00 80 mm[Hg] [facility] Heart rate 2019-09-29 00:05:00 84 /min [facility] Respiratory rate 2019-09-29 00:05:00 18 /min [facility] Oxygen saturation in Arterial blood by Pulse oximetry 2019-09-29 00:05:00 99 /min [facility] Body temperature 2019-09-28 21:24:00 37.5 Luann [facility] Body height 2019-09-28 21:24:00 152.4 cm [facility] Body weight 2019-09-28 21:24:00 63.504 kg [facility] BMI 2019-09-28 21:24:00 27.34 kg/m2 [facility] Systolic blood pressure 2019-01-18 02:17:00 181 mm[Hg] [facility] Diastolic blood pressure 2019-01-18 02:17:00 93 mm[Hg] [facility] Heart rate 2019-01-18 02:13:00 80 /min [facility] Body temperature 2019-01-18 02:13:00 36.72 Luann [facility] Respiratory rate 2019-01-18 02:13:00 18 /min [facility] Body height 2019-01-18 02:13:00 152.4 cm [facility] Body weight 2019-01-18 02:13:00 67.042 kg [facility] BMI 2019-01-18 02:13:00 28.87 kg/m2 [facility] Oxygen saturation in Arterial blood by Pulse oximetry 2019-01-18 02:13:00 98 /min [facility] Systolic blood pressure 2019-01-18 02:17:00 181 mm[Hg] [facility] Diastolic blood pressure 2019-01-18 02:17:00 93 mm[Hg] [facility] Heart rate 2019-01-18 02:13:00 80 /min [facility] Body temperature 2019-01-18 02:13:00 36.72 Luann [facility] Respiratory rate 2019-01-18 02:13:00 18 /min [facility] Body height 2019-01-18 02:13:00 152.4 cm [facility] Body weight 2019-01-18 02:13:00 67.042 kg [facility] BMI 2019-01-18 02:13:00 28.87 kg/m2 [facility] Oxygen saturation in Arterial blood by Pulse oximetry 2019-01-18 02:13:00 98 /min [facility] Procedures Procedure Date / Time Performed Performing Clinician Source US ABDOMEN COMPLETE 2021-05-12 14:10:47 Leisa Howell [facility] ASSIGNMENT OF BENEFITS 2021-05-12 13:29:57 Docto r Unassigned, [place] [facility] CT ABDOMEN PELVIS W CONTRAST 2019-10-20 15:24:56 Rajinder Carrasco [facility] LIPASE 2019-10-20 14:36:00 [facility] TROPONIN I 2019-10-20 14:36:00 Rajinder [facility]co [facility] HEPATIC FUNCTION PANEL ([id number]) (ALB,T.PRO,BILI T,BU/BC,ALT,AST,ALK PHOS) 2019-10-20 14:36:00 Rajinder Carrasco [facility] BASIC METABOLIC PANEL (NA, K, CL, CO2, GLUCOSE, BUN, CREATININE, CA) 2019-10-20 14:36:00 Rajinder Carrasco [facility] CBC WITH DIFF 2019-10-20 14:36:00 Rajinder Carrasco [facility] PROTHROMBIN TIME / INR 2019-10-20 14:36:00 Balbir Carrasco [facility] ACTIVATED PARTIAL THRMPLAS ELÍAS 2019-10-20 14:36:00 Rajinder Carrasco [facility] URINALYSIS 2019-10-20 14:36:00 [facility] N-TERMINAL PRO-BNP 2019-10-20 14:36:00 Rajinder Carrasco [facility] LACTIC ACID WHOLE BLOOD 2019-10-20 14:36:00 Do turner Carrasco [facility] EKG-12 LEAD 2019-10-20 14:11:30 Rajinder Carrasco [facility] CONSENT/REFUSAL FOR DIAGNOSIS AND TREATMENT 2019-10-20 13:38:32 Doctor Unassigned, [place] [facility] US ABDOMEN COMPLETE 2019-10-18 13:30:07 Requisition, Mustapha dong [facility] COMP. METABOLIC PANEL ([id number]) 2019-09-28 21:36:00 Veronica Pappas [facility] CBC WITH DIFF 2019-09-28 21:36:00 Veronica Pappas [facility] URINALYSIS 2019-09-28 21:36:00 Veronica Pappas [facility] CONSENT/REFUSAL FOR DIAGNOSIS AND TREATMENT 2019-09-28 21:05:58 Doctor Unassigned, [place] [facility] URINALYSIS MICROSCOPIC 2019-01-18 03:57:00 Aure Hidalgo [facility] URINE CULTURE 2019-01-18 03:57:00 Beckie Hidalgo [facility] POCT URINALYSIS 2019-01-18 02:24:00 [facility] Start Date/Time End Date/Time Encounter Type Admission Type Attending Clinicians Care Facility Care Department Encounter ID Source 2023-12-06 13:03:00 Outpatient Nadine Best [facility] [id number] [facility] 2023-09-12 08:31:00 Outpatient Nadine Best [facility] [id number] [facility] 2023-02-09 08:43:00 Outpatient Nadine Best [facility] [id number] [facility] 2022-05-11 15:43:03 Outpatient Nadine Best [facility] [id number] [facility] 2022-02-14 10:05:02 Outpatient Nadine Best [facility] [id number] [facility] 2020-12-25 14:01:08 Emergency [facility] [id number] [facility] 2020-12-25 10:13:10 Emergency [facility] [id number] [facility] 2023-12-13 00:00:00 2023-12-13 00:00:00 OFFICE VISIT ESTAB PT LEVEL 4 [facility] [id number] [facility] 2023-12-10 00:00:00 2023-12-10 00:00:00 (TEL) [facility] [id number] [facility] 2023-12-06 00:00:00 2023-12-06 00:00:00 OFFICE VISIT ESTAB PT LEVEL 4 [facility] [id number] [facility] 2023-09-14 00:00:00 2023-09-14 00:00:00 SUB ANNUAL [facility] WELLNESS VISIT [facility] [id number] [facility] 2023-09-14 00:00:00 2023-09-14 00:00:00 OFFICE VISIT ESTAB PT LEVEL 3 [facility] [id number] [facility] 2023-05-10 00:00:00 2023-05-10 00:00:00 OFFICE VISIT ESTAB PT LEVEL 3 [facility] [id number] [facility] 2023-02-13 00:00:00 2023-02-13 00:00:00 OFFICE VISIT ESTAB PT LEVEL 3 [facility] [id number] [facility] 2023-02-06 14:37:09 2023-02-06 15:23:29 Outpatient SUMAN PRICE MDA, MDA [id number] MD Carlos zamora 2023-02-06 13:40:23 2023-02-06 13:40:23 Outpatient SUMAN PRICE MDA, MDA [id number] MD Carlos [facility]amora 2022-11-15 00:00:00 2022-11-15 00:00:00 OFFICE VISIT ESTAB PT LEVEL 3 [facility] [id number] [facility] 2022-10-26 00:00:00 2022-10-26 00:00:00 (TEL) [facility] [id number] [facility] 2022-09-15 00:00:00 2022-09-15 00:00:00 (TEL) [facility] [id number] [facility] 2022-08-16 00:00:00 2022-08-16 00:00:00 OFFICE VISIT ESTAB PT LEVEL 3 [facility] [id number] [facility] 2022-05-11 00:00:00 2022-05-11 00:00:00 SUB ANNUAL [facility] WELLNESS VISIT [facility] [id number] [facility] 2022-05-11 00:00:00 2022-05-11 00:00:00 OFFICE VISIT ESTAB PT LEVEL 3 [facility] [id number] [facility] 2022-02-14 00:00:00 2022-02-14 00:00:00 OFFICE VISIT EST PT LEVEL 3 [facility] [id number] [facility] 2022-02-03 08:38:12 2022-02-03 08:38:12 Outpatient YAZ MUKHERJEE [id number] Ethan Gamble 2021-09-20 12:44:34 2021-09-20 14:18:19 Outpatient RULA SUMAN CARRASCO [facility] MDA [id number] MD Carlos zamora 2021-09-20 11:46:03 2021-09-20 11:46:03 Outpatient RULA SUMAN CARRASCO MDA MDA [id number] MD Carlos zamora 2021-05-12 08:31:47 2021-05-12 23:59:00 Outpatient R LEISA MUÑOZ [facility] [id number] [facility] 2021-05-12 08:31:47 2021-05-12 23:59:00 Hospital Encounter Leisa Muñoz [facility] [id number] [facility] 2021-05-12 00:00:00 2021-05-12 00:00:00 Orders Only Doctor Unassigned, [place] [facility] [facility] 1.2.840.114 350.1.13.10 4.2.7.2.686 [id number] [facility] 2020-09-07 10:40:40 2020-09-07 11:45:04 Outpatient SUMAN PRICE MDA MDA [id number] MD Carlos zamora 2020-09-07 09:55:19 2020-09-07 09:55:19 Outpatient SUMAN PRICE MDA MDA [id number] MD Carlos zamora 2019-11-08 12:57:11 2019-11-08 12:57:11 Outpatient SUMAN PRICE MDA MDA [id number] MD Carlos zamora 2019-11-08 12:56:55 2019-11-08 12:56:55 Outpatient SUMAN PRICE MDA MDA [id number] MD Carlos zamora 2019-10-20 08:51:00 2019-10-20 12:27:00 Emergency Rajinder Carrasco [facility] 1.2.840.114 350.1.13.10 4.2.7.2.686 [id number] [facility] 2019-10-20 08:51:00 2019-10-20 12:27:00 Emergency Rajinder Carrasco [facility] 1.2.840.114 350.1.13.10 4.2.7.2.686 [id number] 2019-10-18 07:34:44 2019-10-18 23:59:00 Hospital Encounter Radiology [facility] 1.2.840.114 350.1.13.10 4.2.7.2.686 [id number] [facility] 2019-10-18 07:34:44 2019-10-18 23:59:00 Hospital Encounter Radiology [facility] 1.2.840.114 350.1.13.10 4.2.7.2.686 [id number] 2019-10-18 00:00:00 2019-10-18 00:00:00 Outpatient R [facility] [id number] [facility] 2019-09-28 16:26:00 2019-09-28 19:31:00 Emergency Veronica Pappas [facility] 1.2.840.114 350.1.13.10 4.2.7.2.686 [id number] [facility] 2019-09-28 16:26:00 2019-09-28 19:31:00 Emergency Veronica Pappas [facility] 1.2.840.114 350.1.13.10 4.2.7.2.686 [id number] 2019-01-17 20:00:51 2019-05-03 06:52:47 Urgent Care Beckie Hidalgo Unknown, Attending [facility] radha Delgadillo 1.2.840.114 350.1.13.10 4.2.7.2.686 [id number] [facility] 2019-01-17 20:00:51 2019-05-03 06:52:47 Urgent Care Beckie Hidalgo [facility] radha Delgadillo 1.2.840.114 350.1.13.10 4.2.7.2.686 [id number] 2019-01-17 20:00:00 2019-01-17 21:45:59 Outpatient R BECKIE HIDALGO [facility] [id number] [facility] Results Test Description Test Time Test Comments Results Result Co mments Source LIPID [id number] 00:00:00* Test Item Value Reference Range Interpretation Comme nts ALBUMIN (test code = 1751-7) 4.2 g/dL See_Comment N [Automated [employer]] The system which generated this result transmitted reference range: 3.6-5.1 g/dL. The reference range was not used to interpret this result as normal/abnormal. ALBUMIN/GLOBULIN RATIO (test code = 1759-0) 1.4 (calc) See_Comment N [Automated message] The system which generated this result transmitted reference range: 1.0-2.5 (calc). The reference range was not used to interpret this result as normal/abnormal. ALKALINE PHOSPHATASE (test code = 6768-6) 69 U/L See_Comment N [Automated message] The system which generated this result transmitted reference range: 37-153 U/L. The reference range was not used to interpret this result as normal/abnormal. ALT (test code = 1742-6) 10 U/L See_Comment N [[employer]ated [employer]] The system which generated this result transmitted reference range: 6-29 U/L. The reference range was not used to interpret this result as normal/abnormal. AST (test code = 1920-8) 16 U/L See_Comment N [[employer]ated [employer]] The system which generated this result transmitted reference range: 10-35 U/L. The reference range was not used to interpret this result as normal/abnormal. BILIRUBIN, TOTAL (test code = 1975-2) 0.6 mg/dL See_Comment N [Automated messa ge] The system which generated this result transmitted reference range: 0.2-1.2 mg/dL. The reference range was not used to interpret this result as normal/abnormal. BUN/CREATININE RATIO (test code = 3097-3) SEE NOTE: (calc) See_Comment [Automated message] The system which generated this result transmitted reference range: 6-22 (calc). The reference range was not used to interpret this result as normal/abnormal. CALCIUM (test code = 76089-3) 9.1 mg/dL See_Comment N [Automated messa ge] The system which generated this result transmitted reference range: 8.6-10.4 mg/dL. The reference range was not used to interpret this result as normal/abnormal. CARBON DIOXIDE (test code = 2028-9) 27 mmol/L See_Comment N [Automated messa ge] The system which generated this result transmitted reference range: 20-32 mmol/L. The reference range was not used to interpret this result as normal/abnormal. CHLORIDE (test code = 2075-0) 108 mmol/L See_Comment N [Automated messa ge] The system which generated this result transmitted reference range: 98-110 mmol/L. The reference range was not used to interpret this result as normal/abnormal. CREATININE (test code = 2160-0) 0.81 mg/dL See_Comment N [Automated messa ge] The system which generated this result transmitted reference range: 0.60-1.00 mg/dL. The reference range was not used to interpret this result as normal/abnormal. GLOBULIN (test code = 40823-6) 2.9 g/dL (calc) See_Comment N [Automated message] The system which generated this result transmitted reference range: 1.9-3.7 g/dL (calc). The reference range was not used to interpret this result as normal/abnormal. GLUCOSE (test code = 2345-7) 97 mg/dL See_Comment N [Automated messa ge] The system which generated this result transmitted reference range: 65-99 mg/dL. The reference range was not used to interpret this result as normal/abnormal. POTASSIUM (test code = 2823-3) 4.3 mmol/L See_Comment N [Automated messa ge] The system which generated this result transmitted reference range: 3.5-5.3 mmol/L. The reference range was not used to interpret this result as normal/abnormal. PROTEIN, TOTAL (test code = 2885-2) 7.1 g/dL See_Comment N [[employer]] The system which generated this result transmitted reference range: 6.1-8.1 g/dL. The reference range was not used to interpret this result as normal/abnormal. SODIUM (test code = 2951-2) 143 mmol/L See_Comment N [[employer]ated [employer]] The system which generated this result transmitted reference range: 135-146 mmol/L. The reference range was not used to interpret this result as normal/abnormal. UREA NITROGEN (BUN) (test code = 3094-0) 20 mg/dL See_Comment N [Automated message] The system which generated this result transmitted reference range: 7-25 mg/dL. The reference range was not used to interpret this result as normal/abnormal. ABSOLUTE BASOPHILS (test code = 704-7) 53 cells/uL See_Comment N [Automated m essage] The system which generated this result transmitted reference range: 0-200 cells/uL. The reference range was not used to interpret this result as normal/abnormal. ABSOLUTE EOSINOPHILS (test code = 711-2) 132 cells/uL See_Comment N [Automated m essage] The system which generated this result transmitted reference range: 15-500 cells/uL. The reference range was not used to interpret this result as normal/abnormal. ABSOLUTE LYMPHOCYTES (test code = 731-0) 2046 cells/uL See_Comment N [Automated m essage] The system which generated this result transmitted reference range: 850-3900 cells/uL. The reference range was not used to interpret this result as normal/abnormal. ABSOLUTE MONOCYTES (test code = 742-7) 409 cells/uL See_Comment N [Automated m essage] The system which generated this result transmitted reference range: 200-950 cells/uL. The reference range was not used to interpret this result as normal/abnormal. ABSOLUTE NEUTROPHILS (test code = 751-8) 3960 cells/uL See_Comment N [Automated m essage] The system which generated this result transmitted reference range: 6521-1289 cells/uL. The reference range was not used to interpret this result as normal/abnormal. BASOPHILS (test code = 706-2) 0.8 % N EOSINOPHILS (test code = 713-8) 2.0 % N HEMATOCRIT (test code = 4544-3) 37.6 % See_Comment N [Automated messa ge] The system which generated this result transmitted reference range: 35.0-45.0 %. The reference range was not used to interpret this result as normal/abnormal. HEMOGLOBIN (test code = 718-7) 12.5 g/dL See_Comment N [Automated messa ge] The system which generated this result transmitted reference range: 11.7-15.5 g/dL. The reference range was not used to interpret this result as normal/abnormal. LYMPHOCYTES (test code = 736-9) 31.0 % N MCH (test code = 785-6) 32.9 pg See_Comment N [Automated messa ge] The system which generated this result transmitted reference range: 27.0-33.0 pg. The reference range was not used to interpret this result as normal/abnormal. MCHC (test code = 786-4) 33.2 g/dL See_Comment N [Automated messa ge] The system which generated this result transmitted reference range: 32.0-36.0 g/dL. The reference range was not used to interpret this result as normal/abnormal. MCV (test code = 787-2) 98.9 fL See_Comment N [Automated messa ge] The system which generated this result transmitted reference range: 80.0-100.0 fL. The reference range was not used to interpret this result as normal/abnormal. MONOCYTES (test code = 5905-5) 6.2 % N MPV (test code = 776-5) 10.2 fL See_Comment N [Automated messa ge] The system which generated this result transmitted reference range: 7.5-12.5 fL. The reference range was not used to interpret this result as normal/abnormal. NEUTROPHILS (test code = 770-8) 60 % N PLATELET COUNT (test code = 777-3) 212 Thousand/uL See_Comment N [Automated message] The system which generated this result transmitted reference range: 140-400 Thousand/uL. The reference range was not used to interpret this result as normal/abnormal. RDW (test code = 788-0) 13.1 % See_Comment N [Automated messa ge] The system which generated this result transmitted reference range: 11.0-15.0 %. The reference range was not used to interpret this result as normal/abnormal. RED BLOOD CELL COUNT (test code = 789-8) 3.80 Million/uL See_Comment N [Automated message] The system which generated this result transmitted reference range: 3.80-5.10 Million/uL. The reference range was not used to interpret this result as normal/abnormal. WHITE BLOOD CELL COUNT (test code = 6690-2) 6.6 Thousand/uL See_Comment N [Automated message] The system which generated this result transmitted reference range: 3.8-10.8 Thousand/uL. The reference range was not used to interpret this result as normal/abnormal. CHOL/HDLC RATIO (test code = 9830-1) 2.6 (calc) See_Comment N [[employer]ated [employer]] The system which generated this result transmitted reference range: <5.0 (calc). The reference range was not used to interpret this result as normal/abnormal. CHOLESTEROL, TOTAL (test code = 2093-3) 152 mg/dL See_Comment N [Automated message] The system which generated this result transmitted reference range: <200 mg/dL. The reference range was not used to interpret this result as normal/abnormal. HDL CHOLESTEROL (test code = 2085-9) 58 mg/dL See_Comment N [Automated [employer]] The system which generated this result transmitted reference range: > OR = 50 mg/dL. The reference range was not used to interpret this result as normal/abnormal. LDL-CHOLESTEROL (test code = 44957-7) 74 mg/dL (calc) N NON HDL CHOLESTEROL (test code = 09670-2) 94 mg/dL (calc) See_Comment N [Automated message] The system which generated this result transmitted reference range: <130 mg/dL (calc). The reference range was not used to interpret this result as normal/abnormal. TRIGLYCERIDES (test code = 2571-8) 115 mg/dL See_Comment N [[employer]ated [employer]] The system which generated this result transmitted reference range: <150 mg/dL. The reference range was not used to interpret this result as normal/abnormal. COMPREHENSIVE METABOLIC PANEL(CMP)2023-02-04 00:00:00* Test Item Value Reference Range Interpretation Comme nts ALBUMIN (test code = 1751-7) 4.1 g/dL See_Comment N [Automated messa ge] The system which generated this result transmitted reference range: 3.6-5.1 g/dL. The reference range was not used to interpret this result as normal/abnormal. ALBUMIN/GLOBULIN RATIO (test code = 1759-0) 1.3 (calc) See_Comment N [Automated messa ge] The system which generated this result transmitted reference range: 1.0-2.5 (calc). The reference range was not used to interpret this result as normal/abnormal. ALKALINE PHOSPHATASE (test code = 6768-6) 60 U/L See_Comment N [Automated message] The system which generated this result transmitted reference range: 37-153 U/L. The reference range was not used to interpret this result as normal/abnormal. ALT (test code = 1742-6) 13 U/L See_Comment N [Automated messa ge] The system which generated this result transmitted reference range: 6-29 U/L. The reference range was not used to interpret this result as normal/abnormal. AST (test code = 1920-8) 16 U/L See_Comment N [Automated messa ge] The system which generated this result transmitted reference range: 10-35 U/L. The reference range was not used to interpret this result as normal/abnormal. BILIRUBIN, TOTAL (test code = 1975-2) 0.6 mg/dL See_Comment N [Automated message] The system which generated this result transmitted reference range: 0.2-1.2 mg/dL. The reference range was not used to interpret this result as normal/abnormal. BUN/CREATININE RATIO (test code = 3097-3) SEE NOTE: (calc) See_Comment [Automated message] The system which generated this result transmitted reference range: 6-22 (calc). The reference range was not used to interpret this result as normal/abnormal. CALCIUM (test code = 61895-3) 9.1 mg/dL See_Comment N [Automated messa ge] The system which generated this result transmitted reference range: 8.6-10.4 mg/dL. The reference range was not used to interpret this result as normal/abnormal. CARBON DIOXIDE (test code = 2027-9) 28 mmol/L See_Comment N [Automated messa ge] The system which generated this result transmitted reference range: 20-32 mmol/L. The reference range was not used to interpret this result as normal/abnormal. CHLORIDE (test code = 2075-0) 107 mmol/L See_Comment N [Automated messa ge] The system which generated this result transmitted reference range: 98-110 mmol/L. The reference range was not used to interpret this result as normal/abnormal. CREATININE (test code = 2160-0) 0.69 mg/dL See_Comment N [Automated messa ge] The system which generated this result transmitted reference range: 0.60-1.00 mg/dL. The reference range was not used to interpret this result as normal/abnormal. GLOBULIN (test code = 22271-6) 3.1 g/dL (calc) See_Comment N [Automated message] The system which generated this result transmitted reference range: 1.9-3.7 g/dL (calc). The reference range was not used to interpret this result as normal/abnormal. GLUCOSE (test code = 2345-7) 91 mg/dL See_Comment N [Automated messa ge] The system which generated this result transmitted reference range: 65-99 mg/dL. The reference range was not used to interpret this result as normal/abnormal. POTASSIUM (test code = 2823-3) 4.1 mmol/L See_Comment N [Automated messa ge] The system which generated this result transmitted reference range: 3.5-5.3 mmol/L. The reference range was not used to interpret this result as normal/abnormal. PROTEIN, TOTAL (test code = 2885-2) 7.2 g/dL See_Comment N [[employer]ated [employer]] The system which generated this result transmitted reference range: 6.1-8.1 g/dL. The reference range was not used to interpret this result as normal/abnormal. SODIUM (test code = 2951-2) 142 mmol/L See_Comment N [Automated messa ge] The system which generated this result transmitted reference range: 135-146 mmol/L. The reference range was not used to interpret this result as normal/abnormal. UREA NITROGEN (BUN) (test code = 3094-0) 18 mg/dL See_Comment N [Automated message] The system which generated this result transmitted reference range: 7-25 mg/dL. The reference range was not used to interpret this result as normal/abnormal. COMPREHENSIVE METABOLIC PANEL(CMP)2022-09-06 00:00:00* Test Item Value Reference Range Interpretation Comme nts ALBUMIN (test code = 1751-7) 4.0 g/dL See_Comment N [Automated message] The system which generated this result transmitted reference range: 3.6-5.1 g/dL. The reference range was not used to interpret this result as normal/abnormal. ALBUMIN/GLOBULIN RATIO (test code = 1759-0) 1.3 (calc) See_Comment N [Automated message] The system which generated this result transmitted reference range: 1.0-2.5 (calc). The reference range was not used to interpret this result as normal/abnormal. ALKALINE PHOSPHATASE (test code = 6768-6) 67 U/L See_Comment N [Automated message] The system which generated this result transmitted reference range: 37-153 U/L. The reference range was not used to interpret this result as normal/abnormal. ALT (test code = 1742-6) 10 U/L See_Comment N [Automated message] The system which generated this result transmitted reference range: 6-29 U/L. The reference range was not used to interpret this result as normal/abnormal. AST (test code = 1920-8) 16 U/L See_Comment N [Automated message] The system which generated this result transmitted reference range: 10-35 U/L. The reference range was not used to interpret this result as normal/abnormal. BILIRUBIN, TOTAL (test code = 1975-2) 0.8 mg/dL See_Comment N [Automated message] The system which generated this result transmitted reference range: 0.2-1.2 mg/dL. The reference range was not used to interpret this result as normal/abnormal. BUN/CREATININE RATIO (test code = 3097-3) NOT APPLICABLE (calc) See_Comment [Automated message] The system which generated this result transmitted reference range: 6-22 (calc). The reference range was not used to interpret this result as normal/abnormal. CALCIUM (test code = 55155-6) 9.0 mg/dL See_Comment N [Automated message] The system which generated this result transmitted reference range: 8.6-10.4 mg/dL. The reference range was not used to interpret this result as normal/abnormal. CARBON DIOXIDE (test code = 2027-9) 27 mmol/L See_Comment N [Automated message] The system which generated this result transmitted reference range: 20-32 mmol/L. The reference range was not used to interpret this result as normal/abnormal. CHLORIDE (test code = 5-0) 107 mmol/L See_Comment N [Automated message] The system which generated this result transmitted reference range: 98-110 mmol/L. The reference range was not used to interpret this result as normal/abnormal. CREATININE (test code = 2160-0) 0.73 mg/dL See_Comment N [Automated message] The system which generated this result transmitted reference range: 0.60-1.00 mg/dL. The reference range was not used to interpret this result as normal/abnormal. GLOBULIN (test code = 93629-6) 3.2 g/dL (calc) See_Comment N [Automated message] The system which generated this result transmitted reference range: 1.9-3.7 g/dL (calc). The reference range was not used to interpret this result as normal/abnormal. GLUCOSE (test code = 2345-7) 91 mg/dL See_Comment N [Automated message] The system which generated this result transmitted reference range: 65-99 mg/dL. The reference range was not used to interpret this result as normal/abnormal. POTASSIUM (test code = 2823-3) 4.0 mmol/L See_Comment N [Automated message] The system which generated this result transmitted reference range: 3.5-5.3 mmol/L. The reference range was not used to interpret this result as normal/abnormal. PROTEIN, TOTAL (test code = 2885-2) 7.2 g/dL See_Comment N [Automated message] The system which generated this result transmitted reference range: 6.1-8.1 g/dL. The reference range was not used to interpret this result as normal/abnormal. SODIUM (test code = 2951-2) 142 mmol/L See_Comment N [Automated message] The system which generated this result transmitted reference range: 135-146 mmol/L. The reference range was not used to interpret this result as normal/abnormal. UREA NITROGEN (BUN) (test code = 3094-0) 16 mg/dL See_Comment N [Automated message] The system which generated this result transmitted reference range: 7-25 mg/dL. The reference range was not used to interpret this result as normal/abnormal. CT ABDOMEN PELVIS W [id number] 17:00:48Diffuse wall thickening of urinary bladder with surrounding fat strandingsuggestive of underlying in flammation. Correlation with urinalysis forpossible cystitis or UTI. Mildly prominent ovaries, slightly larger than expected for patient thisage. Consider short-term follow-up with pelvic ultrasound onnonemergent/outpatient basis. A 0.9 cm right pleural-based thickening, and 0.5 cm right lower lungnoncalcified nodule. Comparison to prior imaging. If no comparisonsavailable then consider follow-upin 3-6 months to document stability. Preliminary Report Dictated by Resident: Patrick Quarles MD., have reviewed this study and agree with theabove report.EXAM: CT ABDOMEN AND PELVIS WITH CONTRAST HISTORY: pain, nausea, vomiting, a headache and seeing "floaters COMPARISON: Abd ominal ultrasound 10/18/2019. TECHNIQUE AND FINDINGS: Contiguous axial imaging from the level of thelungbases through the proximal thighs was performed after the administration ofintravenous Omnipaque contrast. Coronal and sagittal reconstructions wereobtained. Auto mA and/or iterative reconstruction were used to reduceradiation dose. FINDINGS: LOWER THORAX: Bibasilar atelectasis with focal area of nodularity in thelingula measuring 8 mm. A focal pleural thickening at the right diaphragm measures 0.9 cm (4:48). A0.5 cm right middle lobe noncalcified nodule (2:6). LIVER: Few small hypoattenuating foci are noted within the right hepaticand left hepatic lobe, too small to characterize, may represent hepaticcysts. GALLBLADDER AND BILIARY TREE: No biliary ductal dilation. ?No gallbladderwall thickening. No radiopaque cholelithiasis. SPLEEN: No splenomegaly. PANCREAS: No ductal dilation or masses. Fatty infiltration of thepancreatic head. ADRENAL GLANDS: No adrenal nodules. KIDNEYS: No hydro nephrosis, stones or solid lesions. PERITONEUM AND RETROPERITONEUM: No free air or fluid. LYMPH NODES: No lymphadenopathy. GI TRACT: No dilation or abnormal wall thickening. The appendix is notvisualized. Mild pancolonic diverticulosis with no CT signs ofdiverticulitis. Small sliding-type hiatal hernia. PELVIS/BLADDER: Mild thickening of the urinary bladder slightly out ofproportion to degree of distention. Uterus appears to be absent. Ovariesare slightly more prominent than expected for patient this age. For examplethe left ovary measures 3.0 x 1.7 cm. VESSELS: Mild aortic atherosclerotic calcifications. Patent main portal andsplenic veins. BONES AND SOFT TISSUES: No suspicious lytic or scl erotic bony lesions. Mildmultilevel degenerative changes scattered throughout the visualizedthoracolumbar spine. [facility], Radiant Results Inft User - 10/20/2019 12:01 PM CDTEXAM: CT ABDOMEN AND PELVIS WITH CONTRASTHISTORY: pain, nausea, vomiting, a headache and seeing "floatersCOMPARISON: Abdominal ultrasound 10/18/2019.TECHNIQUE AND FINDINGS: Contiguous axial imaging from the level of the lungbases through the proximal thighs was performed after the administration ofintravenous Omnipaque contrast.Coronal and sagittal reconstructions wereobtained. Auto mA and/or iterative reconstruction were used to reduceradiation dose.FINDINGS:LOWER THORAX: Bibasilar atelectasis with focal area of nodularityin thelingula measuring 8 mm. A focal pleural thickening at the right diaphragm measures 0.9 cm (4:48). A0.5 cm right middle lobe noncalcified nodule (2:6).LIVER: Few small hypoattenuating foci are noted within the right hepaticand left hepatic lobe, too small to characterize, may represent hepaticcysts.GALLBLADDER AND BILIARY TREE: No biliary ductal dilation. No gallbladderwall thickening. No radiopaque cholelithiasis.SPLEEN: No splenomegaly.PANCREAS: No ductal dilation or masses. Fatty infiltration of thepancreatic head.ADRENAL GLANDS: No adrenal nodules.KIDNEYS: No hydronephrosis, stones or solid lesions.PERITONEUM AND RETROPERITONEUM: No free air or fluid.LYMPH NODES: No lymphadenopathy.GI TRACT: No dilation or abnormal wall thickening. The appendix is notvisualized. Mild pancolonic diverticulosis with no CT signs ofdiverticulitis. Small sliding-type hiatal hernia.PELVIS/BLADDER: Mild thickening of the urinary bladder slightly out ofproportion to degree of distention. Uterus appears to be absent. Ovariesare slightly more prominent than expected for patient this age. For examplethe left ovary measures 3.0 x 1.7 cm.VESSELS: Mild aortic atherosclerotic calcifications. Patent mainportal andsplenic veins.BONES AND SOFT TISSUES: No suspicious lytic or sclerotic bony lesions. Mildmultilevel degenerative changes scattered throughout the visualizedthoracolumbar spine. IMPRESSIONDiffuse wall thickening of urinary bladder with surrounding fat strandingsuggestive of underlying infla mmation. Correlation with urinalysis forpossible cystitis or UTI.Mildly prominent ovaries, slightlylarger than expected for patient thisage. Consider short-term follow-up with pelvic ultrasound onnonemergent/outpatient basis.A 0.9 cm right pleural-based thickening, and 0.5 cm right lower lungnoncalcified nodule. Comparison to prior imaging. If no comparisonsavailable then consider follow-up in 3-6 months to document stability.Preliminary Report Dictated by Resident: Patrick Hernandse MD., have reviewed this study and agree with theabove report.[facility] HospitalDunia I 2019-10-20 15:20:00* Test Item Value Reference Range Interpretation Comme nts TROPONIN I (test code = 3919377685) <0.012 See_Comment [Automated message] The system which generated this result transmitted reference range: <=0.034 ng/mL. The reference range was not used to interpret this result as normal/abnormal. YEN (test code = YEN) Equal or Less than 0.034 ng/ml---Normal ?Note: Cardiac troponin begins to rise 3-4 hours after the onset of ischemia. Repeat in 4-6 hours if the sample was drawn within 3-4 hours of the onset of the symptom and found normal. Between 0.035 and 0.120 ng/mL--- Borderline. Questionable myocardial injury or necrosis ? ?Note: Serial measurement may be necessary to confirm or exclude the diagnosis of myocardial injury or necrosis; Clinical correlation (symptoms, EKGs, imaging studies, and others) required; Repeat in 4-6 hours if clinically indicated. ? Equal or Higher than 0.121 ng/mL---Abnormal. Myocardial Injury or Necrosis Likely ? Biotin has been reported to cause a negative bias, interpret results relative to patient's use of biotin. ? Lab Interpretation (test code = 40399-1) Normal [facility] HospitalN-TERMINAL [id number] 15:17:00* Test Item Value Reference Range Interpretation Comme nts NT-proBNP (test code = 7265382493) 127 pg/mL See_Comment H [Automated message] The system which generated this result transmitted reference range: <=125. The reference range was not used to interpret this result as normal/abnormal. YEN (test code = YEN) Biotin has been reported to cause a negative bias, interpret results relative to patient's use of biotin. Lab Interpretation (test code = 27183-2) Abnormal [facility] HospitalBasi Metabolic Panel (NA, K, CL, CO2, GLUCOSE, BUN, CREATININE, CA)2019-10-20 15:08:00* Test Item Value Reference Range Interpretation Comme nts NA (test code = 9301249156) 142 mmol/L 135-145 K (test code = 4939130817) 3.4 mmol/L 3.5-5 L CL (test code = 4939220301) 106 mmol/L 98-108 CO2 TOTAL (test code = 7462742179) 29 mmol/L 23-31 AGAP (test code = 4817682143) 2-16 BUN (test code = 3506369337) 8 mg/dL 7-23 GLUCOSE (test code = 0892068358) 103 mg/dL 70-110 CREATININE (test code = 4978471167) 0.64 mg/dL 0.5-1.04 CALCIUM (test code = 8827204771) 9.3 mg/dL 8.6-10.6 eGFR Calculation (Non-) (test code = 4975525629) mL/min/1.73m2 eGFR Calculation () (test code = 8511671760) mL/min/1.73m2 YEN (test code = YEN) Association of Glomerular Filtration Rate (GFR) and Staging of Kidney Disease* + --+ --+ ------+| GFR (mL/min/1.73 m2) ?| With Kidney Damage ?| ?Without Kidney Damage+ --------+ --------+ +| ?>90 ?| ?Stage one ?| ? Normal ?+ ---+ ---+ -------+| ?60-89 ?| ?Stage two ?| ? Decreased GFR ? + --+ --+ ------+| ?30-59 ?| ?Stage three ?| ? Stage three ? + --+ --+ ------+| ?15-29 ?| ?Stage four ? | ? Stage four ?+ ---+ ---+ -------+| ?<15 (or dialysis) ? ?| ?Stage five ? | ? Stage five ?+ ---+ ---+ -------+ *Each stage assumes the associated GFR level has been in effect for at least three months. ?Stages 1 to 5, with or without kidney disease, indicate chronic kidney disease. Notes: Determination of stages one and two (with eGFR >59mL/min/1.73 m2) requires estimation of kidney damage for at least three months as defined by structural or functional abnormalities of the kidney, manifested by either:Pathological abnormalities or Markers of kidney damage (including abnormalities in the composition of the blood or urine or abnormalities in imaging tests). Lab Interpretation (test code = 12158-4) Abnormal [facility] HospitalHepatic Function Panel (ALB, T.PRO, BILI T, BU/BC, ALT, AST, ALK PHOS)2019-10-20 15:08:00* Test Item Value Reference Range Interpretation Comme nts TOTAL BILI (test code = 7575256395) 0.6 mg/dL 0.1-1.1 BILI UNCON (test code = 3377416887) 0.8 mg/dL 0.1-1.1 BILI CONJ (test code = 8131357085) 0.0 mg/dL 0-0.3 T PROTEIN (test code = 3229222319) 7.7 g/dL 6.3-8.2 ALBUMIN (test code = 2507192908) 4.4 g/dL 3.5-5 ALK PHOS (test code = 2869379925) 80 U/L 34-122 ALTv (test code = 1742-6) 14 U/L 5-35 AST(SGOT) (test code = 7890823233) 25 U/L 13-40 Lab Interpretation (test cod e = 81114-2) Normal [facility] HospitalLipase [id number] 15:08:00* Test Item Value Reference Range Interpretation Comme nts LIPASE (test code = 4690755775) 72 U/L 0-220 Lab Interpretation (test cod e = 49482-1) Normal [facility] HospitalaPTT2020-08-23 15:03:00* Test Item Value Reference Range Interpretation Comme nts APTT Patient (test code = 3173-2) See_Comment [Automated message] The system which generated this result transmitted reference range: 23 - 38 Seconds. The reference range was not used to interpret this result as normal/abnormal. YEN (test code = YEN) The [facility] patient population mean normal value for aPTT is 30 seconds. Lab Interpretation (test code = 15072-1) Normal [facility] HospitalUrinalysis2020-08-23 15:02:00* Test Item Value Reference Range Interpretation Comme nts APPEARANCE (test code = 9707561099) Clear Clear COLOR (test code = 8192654128) Straw Yellow A PH (test code = 1019632110) 4.8-8.0 SP GRAVITY (test code = 3161587609) 1.003-1.030 GLU U QUAL (test code = 2913721787) Normal Normal BLOOD (test code = 3611720256) 1+ Negative A KETONES (test code = 2821094948) Negative Negative PROTEIN (test code = 2887-8) Negative Negative UROBILIN (test code = 5908498276) Normal Normal BILIRUBIN (test code = 9899842456) Negative Negative NITRITE (test code = 2850328748) Negative Negative LEUK NISHA (test code = 8309497323) 25/uL Negative A RBC/HPF (test code = 9297103514) See_Comment [Automated [employer]] The system which generated this result transmitted reference range: 0 - 3 HPF. The reference range was not used to interpret this result as normal/abnormal. WBC/HPF (test code = 2951038434) See_Comment [Automated [employer]] The system which generated this result transmitted reference range: 0 - 5 HPF. The reference range was not used to interpret this result as normal/abnormal. BACTERIA (test code = 5502475827) Few Negative A MUCOUS (test code = 8122196889) Slight Negative LPF A SQ EPITH (test code = 9524400885) HPF Lab Interpretation (test code = 93683-9) Abnormal [facility] HospitalProthrombin Time (PT) / [id number] 15:01:00 * Test Item Value Reference Range Interpretation Comme nts PROTIME PATIENT (test code = 5964-2) See_Comment [Automated messa ge] The system which generated this result transmitted reference range: 12.0 - 14.7 Seconds. The reference range was not used to interpret this result as normal/abnormal. INR (test code = 6301-6) Normal INR <1.1; Warfarin Therapeutic range 2.0 to 3.0 or 2.5 to 3.5, depending upon the indications. Lab Interpretation (test code = 75119-4) Normal [facility] HospitalCBC with Ftkybrxhrevh1534-22-48 14:54:00* Test Item Value Reference Range Interpretation Comme nts WBC (test code = 6690-2) See_Comment [Automated messa ge] The system which generated this result transmitted reference range: 4.30 - 11.10 10*3/?L. The reference range was not used to interpret this result as normal/abnormal. RBC (test code = 789-8) See_Comment [Automated messa ge] The system which generated this result transmitted reference range: 3.93 - 5.25 10*6/?L. The reference range was not used to interpret this result as normal/abnormal. HGB (test code = 718-7) 13.5 g/dL 11.6-15 HCT (test code = 4544-3) 38.7 % 35.7-45.2 MCV (test code = 787-2) 93.5 fL 80.6-95.5 MCH (test code = 785-6) 32.6 pg 25.9-32.8 MCHC (test code = 786-4) 34.9 g/dL 31.6-35.1 RDW-SD (test code = 90628-8) 44.5 fL 39-49.9 RDW-CV (test code = 788-0) 13.0 % 12-15.5 PLT (test code = 777-3) See_Comment [Automated messa ge] The system which generated this result transmitted reference range: 166 - 358 10*3/?L. The reference range was not used to interpret this result as normal/abnormal. MPV (test code = 52153-9) 9.9 fL 9.5-12.9 NRBC/100 WBC (test code = 7271911313) See_Comment [Automated me ssage] The system which generated this result transmitted reference range: 0.0 - 10.0 /100 WBCs. The reference range was not used to interpret this result as normal/abnormal. NRBC x10^3 (test code = 1526093431) <0.01 See_Comment [Automated me ssage] The system which generated this result transmitted reference range: 10*3/?L. The reference range was not used to interpret this result as normal/abnormal. GRAN MAT (NEUT) % (test code = 770-8) 68.9 % IMM GRAN % (test code = 0107636897) 0.30 % LYMPH % (test code = 736-9) 22.1 % MONO % (test code = 5905-5) 6.9 % EOS % (test code = 713-8) 1.3 % BASO % (test code = 706-2) 0.5 % GRAN MAT x10^3(ANC) (test code = 3842290965) 4.39 10*3/uL 1.88-7.09 IMM GRAN x10^3 (test code = 8356224429) <0.03 0-0.06 LYMPH x10^3 (test code = 731-0) 1.41 10*3/uL 1.32-3.29 MONO x10^3 (test code = 742-7) 0.44 10*3/uL 0.33-0.92 EOS x10^3 (test code = 711-2) 0.08 10*3/uL 0.03-0.39 BASO x10^3 (test code = 704-7) 0.03 10*3/uL 0.01-0.07 [facility] HospitalLactic Acid Whole [id number] 14:41:00* Test Item Value Reference Range Interpretation Comme nts LACTIC ACID (test code = 2246514966) 1.44 mmol/L [facility] HospitalUS ABDOMEN [id number] 13:59:23 Unremarkable ultrasound of the abdomen HISTORY: Other acute gastritis without hemorrhage ?Upper abdominal painWalk in patient with written orders. ABDOMINAL ULTRASOUND, COMPLETE COMPARISON: None. FINDINGS: LIVER: Normal in size and echo- texture. Measures 13.8 cm in itscraniocaudal dimension A 5 mm anechoic structure in the left loberepresents a simple cyst. ?Normal hepatopetal ?flow within the main portalvein. Portal vein is normal in size and measures 9 mm. GALLBLADDER: No cholelithiasis, pericholecystic fluid, or gallbladderdistention. No sonographic Roa's sign. The common bile duct measures 3mm. PANCREAS: Incompletely visualized due to overlying bowel gas. SPLEEN: The spleen is normal in size, measuring 9.6 cm. KIDNEYS: The kidneys are normal in size, contour, and echotexture. Theright kidney measures 9.6 cm, and the left kidney measures 10.7 cm. Nohydronephrosis. No ascites. The visualized portions of the abdominal aorta (measures 1.5 cm indiameter) has normal caliber. Gamb, Radiant Results Inft User - 10/18/2019 9:00 AM CDTHISTORY: Other acute gastritis without hemorrhage Upper abdominal painWalk in patient with written orders.ABDOMINAL ULTRASOUND, COMPLETECOMPARISON: None.FINDINGS: LIVER: Normal in size and echo-texture. Measures 13.8 cm in itscraniocaudal dimension A 5mm anechoic structure in the left loberepresents a simple cyst. Normal hepatopetal flow within the main portalvein. Portal vein is normal in size and measures 9 mm.GALLBLADDER: No cholelithiasis, pericholecystic fluid, or gallbladderdistention. No sonographic Roa's sign. The common bile duct measures 3mm.PANCREAS: Incompletely visualized due to overlying bowel gas.SPLEEN: The spleen is normal in size, measuring 9.6 cm. KIDNEYS: The kidneys are normal in size, contour, and echotexture. Theright kidney measures 9.6 cm, and the left kidney measures 10.7 cm. Nohydronephrosis.No ascites.The visualized portions of the abdominal aorta (measures 1.5 cm indiameter) has normal caliber.IMPRESSIONUnremarkable ultrasound of the abdomenUnHCA [facility] Healthcare Clear LakeUrinalysis2020-08-01 22:06:00* Test Item Value Reference Range Interpretation Comme nts APPEARANCE (test code = 4173190909) Hazy Clear A COLOR (test code = 0918071118) Yellow Yellow PH (test code = 6341494273) 4.8-8.0 SP GRAVITY (test code = 2913261421) 1.003-1.030 GLU U QUAL (test code = 6832814871) Normal Normal BLOOD (test code = 4210772308) Negative Negative KETONES (test code = 3378766012) 80 mg/dL Negative A PROTEIN (test code = 2887-8) Negative Negative UROBILIN (test code = 3793168290) 4.0 mg/dL Normal A BILIRUBIN (test code = 5196104512) Negative Negative NITRITE (test code = 3132039212) Negative Negative LEUK NISHA (test code = 8512148584) 75/uL Negative A RBC/HPF (test code = 9101538483) See_Comment H [Automated messa ge] The system which generated this result transmitted reference range: 0 - 3 HPF. The reference range was not used to interpret this result as normal/abnormal. WBC/HPF (test code = 6692720785) See_Comment H [Automated messa ge] The system which generated this result transmitted reference range: 0 - 5 HPF. The reference range was not used to interpret this result as normal/abnormal. BACTERIA (test code = 7627353957) Few Negative A MUCOUS (test code = 0504823383) Moderate Negative LPF A SQ EPITH (test code = 2701451234) HPF HYAL CAST (test code = 7720046708) See_Comment [Automated messa ge] The system which generated this result transmitted reference range: <=2 LPF. The reference range was not used to interpret this result as normal/abnormal. Lab Interpretation (test code = 12417-6) Abnormal [facility] HospitalCOMP. METABOLIC PANEL (14389)2019-09-28 22:01:00* Test Item Value Reference Range Interpretation Comme nts NA (test code = 9410593803) 141 mmol/L 135-145 K (test code = 0773503381) 3.8 mmol/L 3.5-5 CL (test code = 2049579522) 106 mmol/L 98-108 CO2 TOTAL (test code = 0888872593) 25 mmol/L 23-31 AGAP (test code = 2071694118) 2-16 BUN (test code = 6319972167) 15 mg/dL 7-23 GLUCOSE (test code = 6455342570) 93 mg/dL 70-110 CREATININE (test code = 5702980725) 0.89 mg/dL 0.5-1.04 TOTAL BILI (test code = 0683694430) 0.7 mg/dL 0.1-1.1 CALCIUM (test code = 6559713803) 9.2 mg/dL 8.6-10.6 T PROTEIN (test code = 3130239676) 8.2 g/dL 6.3-8.2 ALBUMIN (test code = 9388687816) 4.5 g/dL 3.5-5 ALK PHOS (test code = 3332035475) 70 U/L 34-122 ALTv (test code = 1742-6) 12 U/L 5-35 AST(SGOT) (test code = 7804924613) 28 U/L 13-40 eGFR Calculation (Non-) (test code = 3757201268) mL/min/1.73m2 eGFR Calculation () (test code = 4307363956) mL/min/1.73m2 YEN (test code = YEN) Association of Glomerular Filtration Rate (GFR) and Staging of Kidney Disease* + -+ + ---+| GFR (mL/min/1.73 m2) ?| With Kidney Damage ?| ?Without Kidney Damage+ -------+ ------+ ---------+| ?>90 ?| ?Stage one ?| ? Normal ?+ --+ -+ ----+| ?60-89 ?| ?Stage two ?| ? Decreased GFR ? + -+ + ---+| ?30-59 ?| ?Stage three ?| ? Stage three ? + -+ + ---+| ?15-29 ?| ?Stage four ? | ? Stage four ?+ --+ -+ ----+| ?<15 (or dialysis) ? ?| ?Stage five ? | ? Stage five ?+ --+ -+ ----+ *Each stage assumes the associated GFR level has been in effect for at least three months. ?Stages 1 to 5, with or without kidney disease, indicate chronic kidney disease. Notes: Determination of stages one and two (with eGFR >59mL/min/1.73 m2) requires estimation of kidney damage for at least three months as defined by structural or functional abnormalities of the kidney, manifested by either:Pathological abnormalities or Markers of kidney damage (including abnormalities in the composition of the blood or urine or abnormalities in imaging tests). [facility] acute hospital with Rwcyopxbkkwa4705-91-13 21:45:00* Test Item Value Reference Range Interpretation Comme nts WBC (test code = 6690-2) See_Comment [Automated [employer]] The system which generated this result transmitted reference range: 4.30 - 11.10 10*3/?L. The reference range was not used to interpret this result as normal/abnormal. RBC (test code = 789-8) See_Comment [Automated [employer]] The system which generated this result transmitted reference range: 3.93 - 5.25 10*6/?L. The reference range was not used to interpret this result as normal/abnormal. HGB (test code = 718-7) 13.0 g/dL 11.6-15 HCT (test code = 4544-3) 38.1 % 35.7-45.2 MCV (test code = 787-2) 94.5 fL 80.6-95.5 MCH (test code = 785-6) 32.3 pg 25.9-32.8 MCHC (test code = 786-4) 34.1 g/dL 31.6-35.1 RDW-SD (test code = 63627-3) 45.9 fL 39-49.9 RDW-CV (test code = 788-0) 13.2 % 12-15.5 PLT (test code = 777-3) See_Comment [[employer]ated [employer]] The system which generated this result transmitted reference range: 166 - 358 10*3/?L. The reference range was not used to interpret this result as normal/abnormal. MPV (test code = 36508-6) 9.5 fL 9.5-12.9 NRBC/100 WBC (test code = 6632991827) See_Comment [Automated [employer] ssage] The system which generated this result transmitted reference range: 0.0 - 10.0 /100 WBCs. The reference range was not used to interpret this result as normal/abnormal. NRBC x10^3 (test code = 4831829832) <0.01 See_Comment [Automated me ssage] The system which generated this result transmitted reference range: 10*3/?L. The reference range was not used to interpret this result as normal/abnormal. GRAN MAT (NEUT) % (test code = 770-8) 55.7 % IMM GRAN % (test code = 0066267719) 0.30 % LYMPH % (test code = 736-9) 33.1 % MONO % (test code = 5905-5) 9.7 % EOS % (test code = 713-8) 0.7 % BASO % (test code = 706-2) 0.5 % GRAN MAT x10^3(ANC) (test code = 9119712446) 4.23 10*3/uL 1.88-7.09 IMM GRAN x10^3 (test code = 2888426854) <0.03 0-0.06 LYMPH x10^3 (test code = 731-0) 2.51 10*3/uL 1.32-3.29 MONO x10^3 (test code = 742-7) 0.74 10*3/uL 0.33-0.92 EOS x10^3 (test code = 711-2) 0.05 10*3/uL 0.03-0.39 BASO x10^3 (test code = 704-7) 0.04 10*3/uL 0.01-0.07 [facility] HospitalURINE [id number] 13:43:00* Test Item Value Reference Range Interpretation Comme nts URINE CULTURE (test code = 630-4) 10,000 - 100,000 CFU/mL mixed aerobic organisms - suggests endogenous microbial contamination [facility] HospitalURINALYSIS [id number] 08:21:00* Test Item Value Reference Range Interpretation Comme nts RBC/HPF (test code = 7761779832) See_Comment [Automated messa ge] The system which generated this result transmitted reference range: 0 - 3 HPF. The reference range was not used to interpret this result as normal/abnormal. WBC/HPF (test code = 8878942938) See_Comment [Automated messa ge] The system which generated this result transmitted reference range: 0 - 5 HPF. The reference range was not used to interpret this result as normal/abnormal. BACTERIA (test code = 9780017286) Negative Negative Lab Interpretation (test code = 60486-1) Normal [facility] HospitalPOCT URINALYSIS W SPECIFIC [id number] 02:24:00* Test Item Value Reference Range Interpretation Comme nts POCT U SP GRAV (test code = 3255) 1.010 mg/dl 1.005-1.025 POCT PH U (test code = 3254) 5 mg/dl 5-8 POCT U LEUK EST (test code = 3263) neg Negative - Negative POCT U NIT (test code = 3262) neg Negative - Negative POCT U PROT (test code = 3259) neg Negative - Negative POCT U GLU (test code = 3256) neg Negative - Negative POCT U KETONE (test code = 3258) neg Negative - Negative POCT U UROBILI (test code = 3260) normal 0.2-1 POCT U BILI (test code = 3261) neg Negative - Negative POCT U BLD (test code = 3257) neg Negative - Negative POCT U COLOR (test code = 3266) yellow POCT U APPEAR (test code = 3267) clear YEN (test code = YEN) accurate developme nt and interpretation of all internal controls Lab Interpretation (test code = 61173-9) Normal [facility]
[2024-04-15 20:35] LABS: Absolute Basophils 0.1 K/uL (0-0.5); Absolute Eosinophils 0.2 K/uL (0-0.5); Absolute Monocytes 0.8 K/uL (0.1-1.3); Absolute Neutrophil 4.6 K/uL (1.8-8.0); Basophils % 0.7 % (0-1.3); Hematocrit 39.2 % (36.0-45.0); Hemoglobin 13.1 g/dL (12.0-15.0); Lymphocytes % 25.9 % (15.3-44.8); MCH 32.1 pg (27.0-35.0); MCHC 33.5 g/dL (32.0-36.0); MCV 95.7 fL (80-100); MPV 7.9 fL (7.6-11.3); Monocytes % 10.9 % (3.3-12.3); Neutrophils % 59.5 % (41.7-73.7); Nucleated Red Blood Cells % 0.1 % (0-0); Platelets 244 thou/uL (152-406); Red Cell Distribution Width 13.6 % (12.1-15.2)
[2024-04-15] MEDS ORDERED: ONDANSETRON 4 MG/2 ML VIAL ONE (20:36)
[2024-04-15] MEDS ORDERED: CEFTRIAXONE 1000 MG/VIAL ONE (20:36)
[2024-04-15] MEDS ORDERED: NA CHLORIDE 0.9% 1,000 ML ONE (20:37)
[2024-04-15] MEDS ORDERED: NA CHLORIDE 0.9% 50 ML ONE (20:37)
[2024-04-15] MEDS ORDERED: KETOROLAC 30 MG/ML INJ ONE (20:37)
[2024-04-15 20:41] LABS: Specific Gravity 1.006 (1.005-1.030); Sqamous Epithelial <5 /HPF (None Seen); Urine Bacteria None Seen /HPF (<20); Urine Bilirubin NEGATIVE (Negative); Urine Blood Trace (Negative); Urine Clarity Turbid (Clear); Urine Color Colorless (Yellow); Urine Crystals Unidentified Few /HPF (None Seen); Urine Culture Reflex Order NOT NEEDED; Urine Glucose NEGATIVE (Negative); Urine Ketones NEGATIVE (Negative); Urine Microscopic Reflex YN ORDER UMIC; Urine Nitrite NEGATIVE (Negative); Urine Protein NEGATIVE (Negative); Urine RBC <5 /HPF (None Seen); Urine Urobilinogen Normal (Normal); Urine WBC <5 /HPF (<5); Urine Yeast (Budding) Trace /HPF (None Seen)
[2024-04-15 21:05] LABS: Albumin 3.5 g/dL (3.4-5.0); Albumin/Globulin Ratio 0.8 (1.1-1.8); Anion Gap 7.5 mEq/L (5.0-15.0); Bilirubin Total 0.4 mg/dL (0.2-1.0); Globulin 4.3 g/dL (2.3-3.5); Potassium 3.5 mEq/L (3.5-5.1); Protein, Total 7.8 g/dL (6.4-8.2)
--- NOTE | 2024-04-15 23:28 | ER ---
Nurse's Notes [facility] Name: Toma Paul Age: 78 yrs Sex: Female : 1945 Arrival Date: 04/15/2024 Time: 19:27 Bed 6 Private MD: Diagnosis: Acute Dysuria, Acute Fatigue , Generalized malaise Presentation: 04/15 19:42 Chief complaint: Patient states: "not feeling well" I have been peeing a lot for two bm8 -three weeks. Coronavirus screen: Vaccine status: Patient reports receiving the 2nd dose of the covid vaccine. Ebola Screen: Patient negative for fever greater than or equal to 101.5 degrees Fahrenheit, and additional compatible Ebola Virus Disease symptoms Patient denies exposure to infectious person. Patient denies travel to an Ebola-affected area in the 21 days before illness onset. No symptoms or risks identified at this time. Initial Sepsis Screen: Does the patient meet any 2 criteria? No. Patient's initial sepsis screen is negative. Does the patient have a suspected source of infection? No. Patient's initial sepsis screen is negative. Risk Assessment: Do you want to hurt yourself or someone else? Patient reports no desire to harm self or others. Onset of symptoms was March 30, 2024. 19:42 Method Of Arrival: Ambulatory bm8 19:42 Acuity: VINCENT 3 bm8 Triage Assessment: 19:44 General: Appears in no apparent distress. comfortable, Behavior is calm, cooperative, bm8 appropriate for age. Pain: Complains of pain in suprapubic area Pain currently is 5 out of 10 on a pain scale. EENT: No deficits noted. No signs and/or symptoms were reported regarding the EENT system. Neuro: No deficits noted. Level of Consciousness is awake, alert, obeys commands, Oriented to person, place, time, situation, Appropriate for age. : Reports pain in suprapubic area urinary frequency, for two- three weeks. Historical: - Allergies: 19:44 Bactrim; bm8 19:44 Macrobid; bm8 - Home Meds: 19:44 lisinopril 10 mg oral tablet 1 tab daily [Active]; rosuvastatin 20 mg oral tablet 1 tab bm8 daily [Active]; - PMHx: 19:44 hld; htn; bm8 - PSHx: 19:44 hysterectomy; bladder lift; bm8 - Immunization history:: Adult Immunizations. - Infectious Disease History:: Denies. - Social history:: Smoking status: Patient denies any tobacco usage or history of. - Family history:: not pertinent. Screenin:45 [facility] ED Fall Risk Assessment (Adult) History of falling in the last 3 months, rg5 including since admission No falls in past 3 months (0 pts) Confusion or Disorientation No (0 pts) Intoxicated or Sedated No (0 pts) Impaired Gait No (0 pts) Mobility Assist Device Used No (0 pt) Altered Elimination No (0 pt) Score/Fall Risk Level 0 - 2 = Low Risk Oriented to surroundings, Maintained a safe environment, Hourly rounding (assess needs \\T\\ fall precautionary measures) done. Abuse screen: Denies threats or abuse. Nutritional screening: No deficits noted. Tuberculosis screening: No symptoms or risk factors identified. Assessment: 20:45 General: Appears in no apparent distress. comfortable, Reports chills for fatigue for rg5 2-3 days. 20:45 Pain: Complains of pain in back. Neuro: Level of Consciousness is awake, alert, obeys rg5 commands, Oriented to person, place, time, situation. Cardiovascular: Denies chest pain. Respiratory: Airway is patent Trachea midline Respiratory effort is even, Respiratory pattern is regular, symmetrical. GI: Abdomen is round non-distended, Abd is soft and non tender. : Reports urinary frequency. EENT: No signs and/or symptoms were reported regarding the EENT system. Derm: Skin is intact, Skin is dry, Skin is normal, Skin temperature is warm. Musculoskeletal: Circulation, motion, and sensation intact. Range of motion: intact in all extremities. 21:35 Reassessment: No changes from previously documented assessment. Patient and/or family rg5 updated on plan of care and expected duration. Pain level reassessed. Patient is alert, oriented x 3, equal unlabored respirations, skin warm/dry/pink. 22:00 Reassessment: No changes from previously documented assessment. Patient and/or family rg5 updated on plan of care and expected duration. Pain level reassessed. Patient is alert, oriented x 3, equal unlabored respirations, skin warm/dry/pink. Patient states feeling better. 23:05 Reassessment: Patient and/or family updated on plan of care and expected duration. Pain rg5 level reassessed. Patient is alert, oriented x 3, equal unlabored respirations, skin warm/dry/pink. Patient states symptoms have improved. Vital Signs: 19:42 BP 178 / 85; Pulse 91; Resp 17; Temp 98.2; Pulse Ox 100% ; Weight 63.96 kg; Height 5 bm8 ft. 0 in. ; Pain 5/10; 20:40 BP 168 / 80; Pulse 87; Resp 17; Pulse Ox 98% on R/A; Pain 5/10; rg5 21:15 BP 160 / 79; Pulse 80; Resp 17; Pulse Ox 99% on R/A; Pain 0/10; rg5 22:30 BP 148 / 73; Pulse 83; Resp 17; Pulse Ox 99% ; Pain 0/10; rg5 23:37 BP 149 / 78; Pulse 74; Resp 17; Pulse Ox 99% ; rg5 19:42 Body Mass Index 27.54 (63.96 kg, 152.4 cm) bm8 19:42 Pain Scale: Adult bm8 20:40 Pain Scale: Adult rg5 21:15 Pain Scale: Adult rg5 22:30 Pain Scale: Adult rg5 [place] Coma Score: 04/16 05:24 Eye Response: spontaneous(4). Motor Response: obeys commands(6). Verbal Response: sp4 oriented(5). Total: 15. ED Course: 04/15 19:30 Patient arrived in ED. mr 19:44 Triage completed. bm8 19:44 Arm band placed on left wrist. bm8 20:01 Rolando Rodriguez MD is Attending Physician. sp4 20:15 Inserted saline lock: 20 gauge in right antecubital area, using aseptic technique. rg5 Blood collected. Flushed with 10 mL NS. 20:45 Patient has correct armband on for positive identification. Bed in low position. Call rg5 light in reach. Side rails up X 1. Door closed. Noise minimized. Warm blanket given. Verbal reassurance given. 20:45 No provider procedures requiring assistance completed. rg5 21:03 Palomo Ortega, RN is Primary Nurse. rg5 23:50 Provided Education on: POST ER CACE. rg5 23:50 IV discontinued, bleeding controlled, No redness/swelling at site. Pressure dressing rg5 applied. Administered Medications: 20:42 Drug: Ondansetron IVP 4 mg IVP once; over 2 minutes Route: IVP; Site: right antecubital;rg5 21:09 Follow up: Response: No adverse reaction; Pain is decreased rg5 20:42 Drug: NS 0.9% IV 1000 ml IV at 1 bolus Per protocol; to be given as a bolus over 60 rg5 minutes Route: IV; Rate: 1 bolus; Site: right antecubital; 23:04 Follow up: IV Status: Completed infusion; IV Intake: 1000ml rg5 20:43 Drug: TORadol - Ketorolac IVP 15 mg IVP once Route: IVP; Site: right antecubital; rg5 21:09 Follow up: Response: No adverse reaction; Pain is decreased rg5 20:43 Drug: Rocephin - Rocephin (cefTRIAXone) IVPB 1 grams IVPB once over 30 mins; (mix in 50 rg5 mL NS) Route: IVPB; Infused Over: 30 mins; Site: right antecubital; 21:09 Follow up: IV Status: Completed infusion; IV Intake: 50ml rg5 Medication: 20:45 VIS not applicable for this client. rg5 Intake: 21:09 IV: 50ml; Total: 50ml. rg5 23:04 IV: 1000ml; Total: 1050ml. rg5 Outcome: 23:27 Discharge ordered by . verónica 23:50 Discharged to home ambulatory, rg5 23:50 Condition: stable 23:50 Discharge instructions given to patient, Instructed on discharge instructions, Demonstrated understanding of instructions, follow-up care, medications, Prescriptions given X 2, 23:51 Patient left the ED. rg5 Signatures: Mayra Kirk, Rolando Mason MD MD sp4 Go Pedraza, RN RN bm8 Palomo Ortega, LANDRY RN rg5
--- NOTE | 2024-04-15 23:28 | EDPHYS ---
Physician Documentation [facility] Name: Toma Paul Age: 78 yrs Sex: Female : 1945 Arrival Date: 04/15/2024 Time: 19:27 Bed 6 Private MD: ED Physician Rolando Rodriguez HPI: 04/15 20:01 This 78 yrs old Female presents to ER via Ambulatory with complaints of sp4 Doesn't Feel Right. 04/16 05:24 78-year-old female presents with complaint of feeling unwell, back pain dysuria as well.sp4 Historical: - Allergies: 04/15 19:44 Bactrim; bm8 19:44 Macrobid; bm8 - Home Meds: 19:44 lisinopril 10 mg oral tablet 1 tab daily [Active]; rosuvastatin 20 mg oral tablet 1 tab bm8 daily [Active]; - PMHx: 19:44 hld; htn; bm8 - PSHx: 19:44 hysterectomy; bladder lift; bm8 - Immunization history:: Adult Immunizations. - Infectious Disease History:: Denies. - Social history:: Smoking status: Patient denies any tobacco usage or history of. - Family history:: not pertinent. ROS: 04/16 05:24 Constitutional: Negative for fever, chills, and weight loss, positive generalized sp4 fatigue, positive dysuria positive back pain All other systems are negative, Exam: 05:24 Constitutional: This is a well developed, well nourished patient who is awake, alert, sp4 and in no acute distress. Head/Face: Normocephalic, atraumatic. Eyes: Pupils equal round and reactive to light, extra-ocular motions intact. Lids and lashes normal. Conjunctiva and sclera are not injected. Cornea within normal limits. Periorbital areas with no swelling, redness, or edema. ENT: Nares patent. No nasal discharge, no septal abnormalities noted. Tympanic membranes are normal and external auditory canals are clear. Oropharynx with no redness, swelling, or masses, exudates, or evidence of obstruction, uvula midline. Mucous membranes moist. Neck: Trachea midline, no thyromegaly or masses palpated, and no cervical lymphadenopathy. Supple, full range of motion without nuchal rigidity, or vertebral point tenderness. Chest/axilla: Normal chest wall appearance and motion. Nontender with no deformity. No lesions are appreciated. Cardiovascular: Regular rate and rhythm with a normal S1 and S2. No gallops, murmurs, or rubs. Normal PMI, no JVD. No pulse deficits. Respiratory: Lungs have equal breath sounds bilaterally, clear to auscultation and percussion. No rales, rhonchi or wheezes noted. No increased work of breathing, no retractions or nasal flaring. Abdomen/GI: Soft, with normal bowel sounds. No distension or tympany. No guarding or rebound. No evidence of tenderness throughout. Back: No spinal tenderness. No costovertebral tenderness. Skin: Warm, dry with normal turgor. Normal color with no rashes, no lesions, and no evidence of cellulitis. MS/ Extremity: Pulses equal, no cyanosis. Neurovascular intact. Full, normal range of motion. Neuro: Awake and alert, GCS 15, oriented to person, place, time, and situation. Cranial nerves II-XII grossly intact. Motor strength 5/5 in all extremities. Sensory grossly intact. Vital Signs: 04/15 19:42 BP 178 / 85; Pulse 91; Resp 17; Temp 98.2; Pulse Ox 100% ; Weight 63.96 kg; Height 5 bm8 ft. 0 in. ; Pain 5/10; 20:40 BP 168 / 80; Pulse 87; Resp 17; Pulse Ox 98% on R/A; Pain 5/10; rg5 21:15 BP 160 / 79; Pulse 80; Resp 17; Pulse Ox 99% on R/A; Pain 0/10; rg5 22:30 BP 148 / 73; Pulse 83; Resp 17; Pulse Ox 99% ; Pain 0/10; rg5 23:37 BP 149 / 78; Pulse 74; Resp 17; Pulse Ox 99% ; rg5 19:42 Body Mass Index 27.54 (63.96 kg, 152.4 cm) bm8 19:42 Pain Scale: Adult bm8 20:40 Pain Scale: Adult rg5 21:15 Pain Scale: Adult rg5 22:30 Pain Scale: Adult rg5 Codie Coma Score: 04/16 05:24 Eye Response: spontaneous(4). Motor Response: obeys commands(6). Verbal Response: sp4 oriented(5). Total: 15. MDM: 04/15 20:01 Medical Screening Exam initiated sp4 04/16 05:24 Differential Diagnosis: electrolyte abnormality, hypoglycemia, UTI, volume depletion. sp4 Data reviewed: vital signs, nurses notes, old medical records, lab test result(s). Consideration of Admission/Observation Escalation of care including admission/observation considered. ED course: Blood work today unremarkable. No signs of UTI. Patient stable for discharge home. 04/15 20:15 Order name: CBC with Diff; Complete Time: 23:15 sp4 04/15 20:15 Order name: CMP; Complete Time: 23:15 sp4 04/15 20:15 Order name: Lipase; Complete Time: 23:15 sp4 04/15 20:15 Order name: Urinalysis w/ reflexes; Complete Time: 23:15 sp4 04/15 20:15 Order name: IV Saline Lock; Complete Time: 20:43 sp4 04/15 20:15 Order name: Labs collected and sent; Complete Time: 20:43 sp4 Administered Medications: 04/15 20:42 Drug: Ondansetron IVP 4 mg IVP once; over 2 minutes Route: IVP; Site: right antecubital;rg5 21:09 Follow up: Response: No adverse reaction; Pain is decreased rg5 20:42 Drug: NS 0.9% IV 1000 ml IV at 1 bolus Per protocol; to be given as a bolus over 60 rg5 minutes Route: IV; Rate: 1 bolus; Site: right antecubital; 23:04 Follow up: IV Status: Completed infusion; IV Intake: 1000ml rg5 20:43 Drug: TORadol - Ketorolac IVP 15 mg IVP once Route: IVP; Site: right antecubital; rg5 21:09 Follow up: Response: No adverse reaction; Pain is decreased rg5 20:43 Drug: Rocephin - Rocephin (cefTRIAXone) IVPB 1 grams IVPB once over 30 mins; (mix in 50 rg5 mL NS) Route: IVPB; Infused Over: 30 mins; Site: right antecubital; 21:09 Follow up: IV Status: Completed infusion; IV Intake: 50ml rg5 Disposition: 04/16 05:29 Chart complete. sp4 Disposition Summary: 04/15/24 23:27 Discharge Ordered Notes: No sings of acute emergent medical condition on your evaluation Location: Home sp4 Problem: new sp4 Symptoms: have improved sp4 Condition: Stable sp4 Diagnosis - Acute Dysuria, Acute Fatigue , Generalized malaise sp4 Followup: sp4 - With: Private Physician - When: 7 - 10 days - Reason: Recheck today's complaints Discharge Instructions: - Discharge Summary Sheet sp4 - Fatigue sp4 Forms: - Patient Portal Instructions sp4 Prescriptions: - Ibuprofen 600 mg Oral Tablet - take 1 tablet ORAL route every 6 hours As needed take with food; 30 tablet; sp4 Refills: 0, Product Selection Permitted - methocarbamol 750 mg Oral tablet - take 1 tablet ORAL route 4 times per day for 3 days PRN muscle soreness; 60 sp4 tablet; Refills: 0, Product Selection Permitted Signatures: Dispatcher [employer] Rolando Harley MD MD sp4 Go Pedraza, RN RN bm8 Palomo Ortega, RN RN rg5
[2024-04-16 02:47] VITALS: TEMP 98.2
[2024-04-16 02:50] VITALS: O2SAT 99
[2024-04-16 02:52] VITALS: BP 149/78
== END 2024-04-15 23:51 | disposition home or self-care (01) ==
LOC: ER 19:27
DX: R30.0 Dysuria (principal); R53.83 Other fatigue; R53.81 Other malaise; M54.9 Dorsalgia, unspecified; I10 Essential (primary) hypertension; E78.5 Hyperlipidemia, unspecified
CPT/HCPCS: 96365; 96361; 85025; 81001; 36415; 83690; 80053; 96375; 99284; J2405; J7030; J0696